=== PATIENT | male | born 1965 | race Caucasian/White ===

== ENCOUNTER 2021-08-28 04:52 | Inpatient (IN) | payer OTHER ==
[2021-08-28] MEDS ORDERED: NITROGLYCERIN SL TABS 0.4 MG TAB SUBLINGUAL PRN ×2 (04:55→06:50)
[2021-08-28] MEDS ORDERED: HEPARIN SODIUM 1,000 UN/ML (10ML VL) IV ONE (04:55)
[2021-08-28] MEDS ORDERED: MORPHINE SULFATE 4 MG/ML SYRINGE IV STA (04:58)
[2021-08-28] MEDS ORDERED: HEPARIN SOD,PORK IN 0.45% NACL 25,000 UNIT in 0.45% NACL 1 250ML.BAG IV SCH (05:00)
--- NOTE | 2021-08-28 05:05 | ED ---
Chest Pain HPI - General Chief Complaint: Chest Pain Stated Complaint: Chest Pain Time Seen by Provider: 08/28/21 04:55 Source: patient, EMS Mode of arrival: EMS Limitations: no limitations - History of Present Illness Initial Comments: This patient is a 56-year-old man who states he has history of myocardial infarction and stent placement approximately 10 years ago. He woke approximately 3:30 this morning with pains in the chest which she states were identical to the previous pain that he had. He called EMS who transported him here. EMS did send ECG by telemetry concerning for STEMI. The patient states that he had been a smoker until the first heart attack. Patient denies diaphoresis, dyspnea, nausea or vomiting. MD Complaint: chest pain Onset/Timin -: minutes(s) Onset: during rest Pain Location: substernal Pain Radiation: LUE Severity: moderate Quality: aching Consistency: constant Improves With: nitroglycerin Worsens With: nothing Treatments Prior to Arrival: aspirin, nitroglycerin - Related Data Previous Rx's Medication Instructions Recorded Cephalexin [Keflex] 500 mg PO Q6HR #40 cap 06/22/15 Allergies Allergy/AdvReac Type Severity Reaction Status Date / Time No Known Allergies Allergy Verified 06/22/15 15:16 Review of Systems ROS Statement: Those systems with pertinent positive or pertinent negative responses have been documented in the HPI. ROS Other: All systems not noted in ROS Statement are negative. Constitutional: Denies: fever, chills Respiratory: Denies: cough, dyspnea Cardiovascular: Reports: as per HPI, chest pain. Denies: palpitations, edema, syncope Gastrointestinal: Denies: abdominal pain, nausea, vomiting, melena, hematochezia Genitourinary: Denies: dysuria, hematuria Musculoskeletal: Denies: back pain Skin: Denies: rash Neurological: Denies: headache EKG Findings - EKG Comments: EKG Findings:: Twelve-lead ECG does appear to show inferior ST elevations, leads 3 and aVF as well as some reciprocal changes in V2 and V3. - EKG Results: EKG: interpreted by DAYLIN, sinus rhythm (Rate approximate 75 bpm), normal axis Past Medical History Past Medical History: Hyperlipidemia, Hypertension, Myocardial Infarction ([place]) History of Any Multi-Drug Resistant Organisms: None Reported Past Surgical History: Hernia Repair Past Psychological History: No Psychological Hx Reported Smoking Status: Former smoker Past Alcohol Use History: None Reported Past Drug Use History: Marijuana General Exam General appearance: alert, in no apparent distress Head exam: Present: atraumatic, normocephalic Eye exam: Present: normal appearance. Absent: scleral icterus, conjunctival injection Neck exam: Present: normal inspection Respiratory exam: Present: normal lung sounds bilaterally. Absent: respiratory distress, wheezes, rales, rhonchi, stridor Cardiovascular Exam: Present: regular rate, normal rhythm, normal heart sounds. Absent: systolic murmur, diastolic murmur, rubs, gallop GI/Abdominal exam: Present: soft. Absent: distended, tenderness, guarding, rebound, rigid Extremities exam: Present: normal inspection, normal capillary refill. Absent: pedal edema, calf tenderness Back exam: Present: normal inspection. Absent: CVA tenderness (R), CVA tenderness (L) Neurological exam: Present: alert Skin exam: Present: warm, dry, intact, normal color. Absent: rash Course Vital Signs 08/28/21 08/28/21 04:53 05:00 Temperature 98.7 F Pulse Rate 74 71 Respiratory 18 18 Rate Blood Pressure 139/87 130/80 O2 Sat by Pulse 95 98 Oximetry - Reevaluation(s) Reevaluation #1: 08/28/21 05:04 EMS has sent a 12-lead ECG concerning for STEMI as there inferior ST elevations and reciprocal changes in V2 and V3. Case is discussed with the shearer screen measurer and trimmer and the cleaning laborer was activated. Critical Care Time Critical Care Time: Yes (30 minutes) Disposition Clinical Impression: Acute coronary syndrome Disposition: HOME SELF-CARE Condition: Good
--- NOTE | 2021-08-28 05:05 | XR ---
EXAMINATION TYPE: XR chest 1V portable DATE OF EXAM: 08/28/2021 COMPARISON: 02/17/2012 HISTORY: Chest pain TECHNIQUE: Single view FINDINGS: There is no heart failure nor confluent pneumonic infiltrate. There is slight coarsening of the interstitial markings at the lung bases. There are no hilar masses. Mediastinum is normal. IMPRESSION: Increased interstitial markings at the lung bases compared to old exam. This could be mil d interstitial pneumonia or fibrosis. No heart failure.
[2021-08-28] MEDS ORDERED: HEPARIN SODIUM 1,000 UN/ML (10ML VL) ONE (05:23)
[2021-08-28] MEDS ORDERED: VERAPAMIL 2.5 MG/ML 2 ML AMP ONE (05:23)
[2021-08-28] MEDS ORDERED: LIDOCAINE 1% INJ 10MG/ML (20 ML MDV) ONE (05:23)
[2021-08-28 05:27] LABS: Basophils # (A) 0.1 k/uL (0-0.2); Basophils % (A) 1 %; Eosinophils # (A) 0.2 k/uL (0-0.7); Eosinophils % (A) 3 %; HCT 44.6 % (39.0-53.0); HGB 14.8 gm/dL (13.0-17.5); Lymphocytes # (A) 3.6 k/uL (1.0-4.8); Lymphocytes % (A) 40 %; MCH 31.1 pg (25.0-35.0); MCHC 33.1 g/dL (31.0-37.0); MCV 93.9 fL (80.0-100.0); Mean Platelet Volume 8.9; Monocytes # (A) 0.5 k/uL (0-1.0); Monocytes % (A) 6 %; Neutrophils # (A) 4.5 k/uL (1.3-7.7); Neutrophils % (A) 49 %; Platelet Count 227 k/uL (150-450); RBC 4.75 m/uL (4.30-5.90); RDW 13.3 % (11.5-15.5); WBC 9.1 k/uL (3.8-10.6)
[2021-08-28] MEDS: MIDAZOLAM 2 MG/2 ML VIAL IVP ONE ×2 (05:28→06:04)
[2021-08-28] MEDS ORDERED: LIDOCAINE 1% INJ 10MG/ML (20 ML MDV) SQ ONE (05:30)
[2021-08-28] MEDS ORDERED: IV FLUID CONTINUATION 1,000 ML IV ONE (05:32)
[2021-08-28] MEDS: HEPARIN SODIUM 1,000 UN/ML (10ML VL) IV ONE ×2 (05:32→06:35)
[2021-08-28] MEDS ORDERED: VERAPAMIL SYRINGE (5 MG/10 ML) INTRAARTER ONE (05:32)
[2021-08-28 05:37] LABS: INR 0.9 (<1.2); Partial Thromboplastin Time 25.4 sec (22.0-30.0); Prothrombin Time 10.4 sec (9.0-12.0)
[2021-08-28 05:38] LABS: ALT 19 U/L (4-49); AST 19 U/L (17-59); African American GFR (CKD) >90 (>60 ml/min/1.73 sqM); Albumin 4.4 g/dL (3.5-5.0); Alkaline Phosphatase 74 U/L (38-126); Anion Gap 11 mmol/L; Blood Urea Nitrogen 10 mg/dL (9-20); Calcium 9.4 mg/dL (8.4-10.2); Carbon Dioxide 26 mmol/L (22-30); Chloride 100 mmol/L (98-107); Glucose 102 mg/dL (74-99); Non-African American GFR(CKD) 88 (>60 ml/min/1.73 sqM); Potassium 3.8 mmol/L (3.5-5.1); Sodium 137 mmol/L (137-145); Total Bilirubin 0.7 mg/dL (0.2-1.3); Total Protein 7.4 g/dL (6.3-8.2)
[2021-08-28] MEDS ORDERED: niCARdipine 25 MG/10 ML VIAL ONE (05:47)
[2021-08-28] MEDS: NITROGLYCERIN 1000MCG/10ML SYRINGE INTRACORON ONE ×2 (05:55→06:32)
[2021-08-28] MEDS: niCARdipine Syringe (1,000 mcg/10 mL) INTRACORON ONE ×2 (05:55→06:31)
[2021-08-28] MEDS ORDERED: PRASUGREL 10 MG TAB ONE (05:58)
[2021-08-28] MEDS ORDERED: PRASUGREL 10 MG TAB PO ONE (06:01)
[2021-08-28] MEDS ORDERED: MORPHINE SULFATE 4 MG/ML SYRINGE ONE (06:03)
[2021-08-28] MEDS ORDERED: MORPHINE SULFATE 4 MG/ML SYRINGE IVP ONE (06:04)
[2021-08-28] MEDS ORDERED: ATROPINE SULFATE 0.1 MG/ML 10ML SYRINGE IVP ONE (06:11)
[2021-08-28] MEDS ORDERED: HYDROmorphone 1 MG/ML 1 ML SYRINGE ONE (06:18)
[2021-08-28] MEDS ORDERED: HYDROmorphone 1 MG/ML 1 ML SYRINGE IVP ONE (06:21)
[2021-08-28] MEDS ORDERED: MIDAZOLAM 2 MG/2 ML VIAL IVP ONE (06:22)
[2021-08-28] MEDS ORDERED: IOPAMIDOL-370 125ML BTL INJ ONE ×2 (06:23→06:39)
[2021-08-28] MEDS ORDERED: MAG HYDROX/AL HYDROX/SIMETH 30 ML CUP PO PRN (06:50)
[2021-08-28] MEDS ORDERED: RX INFO: IV CONTRAST WAS GIVEN 1 EACH MISC MISCELLANE PRN (06:50)
[2021-08-28] MEDS ORDERED: ZOLPIDEM 5 MG TAB PO PRN (06:50)
[2021-08-28] MEDS ORDERED: ATROPINE SULFATE 0.1 MG/ML 10ML SYRINGE IV PRN (06:50)
--- NOTE | 2021-08-28 06:58 | P.CRDCN ---
History of Present Illness Consult date: 08/28/21 Chief complaint: Chest pain History of present illness: The patient is a 56-year-old gentleman with coronary artery disease and prior stenting of the RCA which was performed several years ago, the timing on the RCA stent is unknown at this point, as well as hypertension and dyslipidemia was brought to the emergency department here with chest discomfort and EKG concerning for inferior ST patient myocardial infarction. The pain in the chest started about 8 hours ago. It was in the middle of the chest. It wasn't radiating to the back. Associated with shortness of breath. Ambulance was called and the first EKG showed [address] segment elevation inferiorly with reciprocal changes. In the light of that the patient was brought to the cardiac catheterization laboratory technician. He underwent an emergent heart catheterization from right radial approach and that revealed critical disease involving the distal RCA and also involving the PDA and PLV branches of the RCA. The patient underwent successful stenting of the PDA branch with adjunctive successful balloon angioplasty of the PLV branch of the RCA with a good angiographic results by the antrostomy 3 flow. During the procedure we lost the floor in the PLV branch and the patient started experiencing discomfort in the chest and his EKG showed 2-1 AV block. After restoring the floor in the PLV branch is chest discomfort has resolved and his AV block has resolved as well. He was almost chest pain-free by the end was only about 1/10 in intensity chest discomfort. Please note that the patient does not follow with any inspector eyeglass for the last 5 years. Unfortunately he is not also on any medications. He stated that he lost his medical insurance and for that reason he has not been having any follow-up nor taking any medications. Please also note that the patient was found severe disease involving the left circumflex coronary system as well as LAD. The disease in the LAD is quite complex and the LAD is dual LAD system. Past Medical History Past Medical History: Hyperlipidemia, Hypertension, Myocardial Infarction ([place]) History of Any Multi-Drug Resistant Organisms: None Reported Past Surgical History: Hernia Repair Past Psychological History: No Psychological Hx Reported Smoking Status: Former smoker Past Alcohol Use History: None Reported Past Drug Use History: Marijuana Medications and Allergies Home Medications Medication Instructions Recorded Confirmed Type Cephalexin [Keflex] 500 mg PO Q6HR #40 cap 06/22/15 Rx Allergies Allergy/AdvReac Type Severity Reaction Status Date / Time No Known Allergies Allergy Verified 06/22/15 15:16 Physical Exam Vitals: Vital Signs Temp Pulse Resp BP Pulse Ox 08/28/21 05:11 57 L 20 135/84 95 08/28/21 05:00 71 18 130/80 98 08/28/21 04:53 98.7 F 74 18 139/87 95 Intake and Output 08/27/21 08/27/21 08/28/21 14:59 22:59 06:59 Intake Total 600 Balance 600 Intake: IV 600 Other: Weight 88.451 kg - Constitutional General appearance: no acute distress - Respiratory Respiratory: bilateral: diminished - Cardiovascular Rhythm: regular Heart sounds: normal: S1, S2 Abnormal Heart Sounds: systolic murmur Results 08/28/21 04:56 08/28/21 04:56 Cardiac Enzymes 08/28/21 08/28/21 Range/Units 04:56 04:56 AST 19 (17-59) U/L Troponin I <0.012 (0.000-0.034) ng/mL Coagulation 08/28/21 Range/Units 04:56 PT 10.4 (9.0-12.0) sec APTT 25.4 (22.0-30.0) sec CBC 08/28/21 Range/Units 04:56 WBC 9.1 (3.8-10.6) k/uL RBC 4.75 (4.30-5.90) m/uL Hgb 14.8 (13.0-17.5) gm/dL Hct 44.6 (39.0-53.0) % Plt Count 227 (150-450) k/uL Comprehensive Metabolic Panel 08/28/21 Range/Units 04:56 Sodium 137 (137-145) mmol/L Potassium 3.8 (3.5-5.1) mmol/L Chloride 100 (98-107) mmol/L Carbon Dioxide 26 (22-30) mmol/L BUN 10 (9-20) mg/dL Creatinine 0.96 (0.66-1.25) mg/dL Glucose 102 H (74-99) mg/dL Calcium 9.4 (8.4-10.2) mg/dL AST 19 (17-59) U/L ALT 19 (4-49) U/L Alkaline Phosphatase 74 (38-126) U/L Total Protein 7.4 (6.3-8.2) g/dL Albumin 4.4 (3.5-5.0) g/dL Current Medications Generic Name Dose Route Start Last Admin Trade Name Freq PRN Reason Stop Dose Admin Al Hydroxide/Mg Hydroxide 30 ml 08/28/21 06:50 Mag Hydrox/Al Hydrox/Simeth 30 Ml Cup PO Q4HR PRN Heartburn Aspirin 81 mg 08/28/21 09:00 Aspirin 81 Mg PO DAILY [facility] Atorvastatin Calcium 80 mg 08/28/21 21:00 Atorvastatin 80 Mg Tab PO HS [facility] Atropine Sulfate 0.5 mg 08/28/21 06:50 Atropine Sulfate 0.1 Mg/Ml 10ml Syringe IV ONCE PRN Symptomatic Bradycardia Heparin Sodium/Sodium Chloride 250 mls @ 9.995 mls/hr 08/28/21 05:00 25,000 unit/ Sodium Chloride IV .Q24H [facility] Protocol 11.3 UNITS/KG/HR Sodium Chloride 1,000 ml/ IV 1,000 mls @ 75 mls/hr 08/28/21 07:00 Solution IV 08/28/21 13:01 .[id number] [facility] Miscellaneous Information 1 each 08/28/21 06:50 Rx Info: Iv Contrast Was Given 1 Each Misc MISCELLANE 08/30/21 06:50 DAILY PRN Per Protocol Nitroglycerin 0.4 mg 08/28/21 04:55 Nitroglycerin Sl Tabs 0.4 Mg Tab SUBLINGUAL Q5M PRN Chest Pain Nitroglycerin 0.4 mg 08/28/21 06:50 Nitroglycerin Sl Tabs 0.4 Mg Tab SUBLINGUAL Q5M PRN Chest Pain Prasugrel 10 mg 08/29/21 09:00 Prasugrel 10 Mg Tab PO DAILY [facility] Protocol Zolpidem Tartrate 5 mg 08/28/21 06:50 Zolpidem 5 Mg Tab PO HS PRN Insomnia Intake and Output 08/27/21 08/27/21 08/28/21 14:59 22:59 06:59 Intake Total 600 Balance 600 Intake: IV 600 Other: Weight 88.451 kg Patient Weight 08/28/21 06:59 Weight 88.451 kg 08/28/21 04:56 08/28/21 04:56 Assessment and Plan Assessment: Assessment #[address] elevation myocardial infarction #2 known CAD and prior stenting of the RCA #3 hypertension [place] #4 dyslipidemia #4 noncompliance Plan #1 dual antiplatelet therapy. #2 aggressive cholesterol control with high intensity statin #3 an ICU admission #4 monitor the patient's hemodynamics #5 obtain an echocardiogram to assess ejection fraction #6 follow-up with the patient
[2021-08-28] MEDS ORDERED: SODIUM CHLORIDE 0.9% 1,000 ML in EMPTY BAG 1 BAG IV SCH (07:00)
[2021-08-28 07:07] LABS: Glucose,Whole Blood 107 mg/dL (75-99)
--- NOTE | 2021-08-28 07:07 | P.PCN ---
Date of Procedure: 08/28/21 Operative Findings: CARDIAC CATHETERIZATION AND PERCUTANEOUS CORONARY INTERVENTION PERFORMING PHYSICIAN: Kavon Urbina MD, [facility] PROCEDURE PERFORMED: 1. Selective right and left coronary angiogram 2. Left heart catheterization 3. Successful stenting of PDA branch of the RCA using 2.75 x 23 mm Xience MANDY which was postdilated using 3 mm balloon which with an excellent angiographic results 4. Successful balloon angioplasty of the PLV branch of the RCA INDICATION: Acute inferior ST elevation myocardial infarction. Please note that the door to balloon was 56 minutes COMPLICATION: None APPROACH: Right radial artery LEVEL OF SEDATION: Moderate with the sedation time off 72 minutes PROCEDURE DESCRIPTION: After obtaining an informed consent the patient was brought to the cardiac mobile lab technician. The right radial artery was cannulated using micropuncture technique, the micropuncture wire passed easily then I placed a 6-Jordanian 11 cm sheath the right radial artery. And anticoagulation was initiated using heparin and the patient was given at the beginning a total of 5000 units of heparin IV and subsequently additional 2000 use of heparin given. Continuous ACT monitoring was performed. After that I did selective right and left coronary angiogram. Selective right coronary angiogram was performed using JR4 guide and selective left coronary angiogram was performed using JL 3.5 diagnostic catheter. After that I did intervene on the RCA. SELECTIVE CORONARY ANGIOGRAM: The right coronary artery: Is a large caliber vessel and a dominant vessel. The proximal RCA appears to be angiographically normal. The mid RCA and stented and the stent is patent. The RCA distally has a critical lesion and the lesion is complex and involving the ostial PDA and PLV branches. Both are large caliber vessels. Left main: Is angiographically normal. Bifurcates into all CX and LAD The left circumflex: Is a large caliber vessel and nondominant vessel. The proximal left circumflex appeared to have mild disease only and gives rises into a large first obtuse marginal branch which work as a ramus intermedius and has proximal lesion appeared to be in the range of 70-80%. The mid left circumflex is ang iographically normal and gives rises into the second OM branch which appeared to be angiographically normal. Third OM branch is also angiographically normal before the circumflex continue as a moderate to large caliber vessel in the AV groove The left anterior descending artery: Is a large caliber vessel. The LAD is dual LAD system. The proximal LAD has mild disease only. The mid LAD just before the bifurcation of a large diagonal branch has a lesion appeared to be in the range of 80%. The first diagonal branch which is a large caliber vessel has a lesion appeared to be in the range of 90%. The LAD after that appeared to have intermediate disease only and does not reach the apex. HEMODYNAMICS: The LVEDP was 10 mmHg without significant gradient across aortic valve PCI OF THE RCA: Anticoagulation was initiated using heparin with continuous ACT monitoring. The RCA was engaged using a JR4 guiding catheter. I did wire the PDA branch of the RCA using a run through wires. Subsequently I did wire and the PLV branch of the right coronary artery using a whisper wire. Balloon angioplasty was performed on both the PDA and PLV using 2.5 x 12 mm balloon. Subsequently I did place stent in the PDA branch of the right coronary artery across the PLV and that was 2.75 x 23 mm stent. The stent was positioned under fluoroscopy guidance and deployed under 12 georgie for 20 seconds. The following angiogram showed normal flow in the PLV branch and the patient starts being symptomatic and also he developed 2-1 AV block. Finally was able to get the wire into the PLV branch again and I did balloon angioplasty of the PLV branch using 2.5 x 12 mm balloon. After that I did balloon angioplasty of the PDA of the right coronary artery using 3.0 x 20 mm noncompliant balloon which was inflated under 18 georgie for 20 seconds. Final angiogram showed excellent angiographic results and the procedure was completed without any complication. We achieved GABRIEL-3 flow in the right coronary artery. CONCLUSION: #[address] patient myocardial infarction #2 Critical disease involving the distal right coronary artery and involving the bifurcation of the PDA and PLV. I performed successful stenting of the PDA successful balloon angioplasty of the PLV #3 Severe disease involving the left circumflex coronary system #4 Severe disease involving the LAD/diagonal system #5 Normal left sided filling pressure POSTPROCEDURE MANAGEMENT: #1 dual antiplatelet therapy #2 aggressive cholesterol control #3 follow-up with the patient
[2021-08-28] MEDS ORDERED: CYCLOBENZAPRINE 5 MG TAB PO PRN (08:32)
[2021-08-28] MEDS ORDERED: HYDROcodone/APAP 5-325MG 1 EACH TAB PO PRN (08:33)
[2021-08-28] MEDS: ASPIRIN 81 MG PO SCH (09:43)
--- NOTE | 2021-08-28 12:37 | ECHOF ---
Referral Reason:STEMI MEASUREMENTS -------- HEIGHT: 167.6 cm WEIGHT: 88.5 kg BP: 135/84 RVIDd: 2.3 cm (< 3.3) IVSd: 1.1 cm (0.6 - 1.1) LVIDd: 4.9 cm (3.9 - 5.3) LVPWd: 1.2 cm (0.6 - 1.1) IVSs: 1.6 cm LVIDs: 2.9 cm LVPWs: 1.3 cm LA Diam: 3.2 cm (2.7 - 3.8) LAESV Index (A-L): 19.76 ml/m Ao Diam: 3.4 cm (2.0 - 3.7) AV Cusp: 2.2 cm (1.5 - 2.6) MV EXCURSION: 15.618 mm (> 18.000) MV EF SLOPE: 106 mm/s (70 - 150) EPSS: 0.4 cm MV E Torres: 0.79 m/s MV DecT: 191 ms MV A Torres: 0.90 m/s MV E/A Ratio: 0.88 RAP: 5.00 mmHg RVSP: 26.84 mmHg FINDINGS -------- Sinus rhythm. This was a technically adequate study. The left ventricular size is normal. There is borderline concentric left ventricular hypertrophy. Overall left ventricular systolic function is mildly impaired with, an EF between 45 - 50 %. Basal inferior LV wall motion is hypokinetic. Basal inferoseptal LV wall motion is hypokinetic. Mid inferior LV wall motion is hypokinetic. The right ventricle is normal in size. Normal LA size by volume 22+/-6 ml/m2. The right atrial size is normal. Interatrial and interventricular septum intact. The aortic valve is trileaflet, and appears structurally normal. No aortic stenosis or regurgitation. The mitral valve is normal. There is trace to mild mitral regurgitation. The tricuspid valve appears structurally normal. Mild tricuspid regurgitation present. Right vent ricular systolic pressure is normal at < 35 mmHg. The pulmonic valve was not well visualized. There is no pulmonic regurgitation present. The aortic root size is normal. Normal inferior vena cava with normal inspiratory collapse consistent with estimated right atrial pre ssure of 5 mmHg. There is no pericardial effusion. CONCLUSIONS -------- 1. There is borderline concentric left ventricular hypertrophy. 2. Overall left ventricular systolic function is mildly impaired with, an EF between 45 - 50 %. 3. Basal inferior LV wall motion is hypokinetic. 4. Basal inferoseptal LV wall motion is hypokinetic. 5. Mid inferior LV wall motion is hypokinetic. 6. Normal LA size by volume 22+/-6 ml/m2. 7. The aortic valve is trileaflet, and appears structurally normal. No aortic stenosis or regurgitati on. 8. There is trace to mild mitral regurgitation. 9. Mild tricuspid regurgitation present. 10. There is no pericardial effusion. UTILITY SERVICE WORKER: Leanne Isbell RDCS
--- NOTE | 2021-08-28 14:03 | P.HPIM ---
History of Present Illness H&P Date: 08/28/21 (seen at 0803) Chief Complaint: chest pain Patient is a 56-year-old male for history of coronary artery disease and prior stenting in RCA however he has been unable to follow-up secondary to losing his medical insurance, hypertension, and dyslipidemia who presented to the emergency department with complaints of chest pain. An EKG showed inferior ST segment elevated myocardial infarction. Cardiology was called and patient was subsequently taken emergently to the Dehydrator. He had 2 stents placed to his RCA one in the PDA and one on the PLV. He returned to the ICU. His chest pain had resolved to 1 out of 10 prior to admission to the ICU. Patient seen and examined at bedside. Feeling tired and fatigue. chest pain is completely resolved at this time. No shortness of breath, no nausea or dizziness. He reports that his chest pain that started at rest, and felt si milar to his prior heart attack. It was associated with shortness of breath and numbness and tingling down both arms. He reports that he is on disability and now has insurance. In 2011 when he had his initial myocardial infarction he did not have any insurance at that time. He had been following with cardiology but no longer afford their clinic charges and had to stop following. He denies any recent cough, cold, fever, flu. He reports that he has some chronic GI issues which need to be worked up outpatient. They're currently getting better and not bothersome to him. He has some abdominal cramping that is relieved with defecation. He also has chronic low back pain which is unchanged and his is on disability. Pertinent positives and negatives as discussed in HPI, a complete review of systems was performed and all other systems are negative. General: non toxic, no distress, appears at stated age Derm: warm, dry Head: atraumatic, normocephalic, symmetric Eyes: EOMI, no lid lag, anicteric sclera, pupils equal round reactive to light ENT: Nose and ears atraumatic, no thrush, no pharyngeal erythema Neck: No thyromegaly, no cervical lymphadenopathy, trachea midline, supple Mouth: no lip lesion, mucus membranes moist Cardiovascular: S1S2 reg, no murmur, positive posterior tibial pulse bilateral, no edema, capillary refill less than 2 seconds Lungs: clear to ascultation bilateral, no ronchi, no rales, no wheeze, no accessory muscle use Abdominal: soft, nontender to palpation, no guarding, no appreciable organomegaly, normal bowel sounds Ext: no gross muscle atrophy, muscle strength muscle strength 5 out of 5 in all 4 extremities, no contractures, TR band in place right wrist Neuro: CN II-XI grossly intact, light touch intact all 4 extremities, finger to nose within normal limits, Psych: Alert, oriented, appropriate affect Assessment/Plan: ST segment elevated myocardial infarction, inferior, status post 2 stents to the RCA -Aspirin, Effient, Lipitor -Await echocardiogram -Cardiology recommendations -AV block during cardiac procedure. Continue to monitor on telemetry -Check lipid profile and hemoglobin A1c Dyslipidemia -Lipitor -Check lipid profile Hypertension -Controlled on arrival -Continue to follow blood pressures The patient is admitted with an anticipated greater than 2 midnight stay for evaluation of STEMI. Surrogate decision-maker: CODE STATUS:full DVT prophylaxis: heparin Discussed with: Anticipated discharge date: in 2-[address]: home A total of 55 minutes was spent on the care of this complex patient more than 50% of the time was spent in counseling and care coordination. Past Medical History Past Medical History: Hyperlipidemia, Hypertension, Myocardial Infarction ([place]) Additional Past Medical History / Comment(s): DJD, Osteoarthritis, chronic abdominal pain History of Any Multi-Drug Resistant Organisms: None Reported Past Surgical History: Heart Catheterization With Stent (last in 2011), Hernia Repair Additional Past Surgical History / Comment(s): sciatica Past Psychological History: No Psychological Hx Reported Smoking Status: Former smoker (quit 2011) Past Alcohol Use History: None Reported Past Drug Use History: Marijuana - Past Family History Father Additional Family Medical History / Comment(s): no heart disease Mother Additional Family Medical History / Comment(s): no hx of CT Medications and Allergies Home Medications Medication Instructions Recorded Confirmed Type Cetirizine HCl [Zyrtec] 10 mg PO DAILY 08/28/21 08/28/21 History Allergies Allergy/AdvReac Type Severity Reaction Status Date / Time No Known Allergies Allergy Verified 08/28/21 08:51 Physical Exam Osteopathic Statement: *. No significant issues noted on an osteopathic structural exam other than those noted in the History and Physical/Consult. Vitals: Vital Signs Temp Pulse Resp BP Pulse Ox 08/28/21 05:11 57 L 20 135/84 95 08/28/21 05:00 71 18 130/80 98 08/28/21 04:53 98.7 F 74 18 139/87 95 Intake and Output 08/27/21 08/28/21 08/28/21 22:59 06:59 14:59 Intake Total 600 Balance 600 Intake: IV 600 Other: Weight 88.451 kg Results CBC & Chem 7: 08/28/21 04:56 08/28/21 04:56 Labs: Abnormal Lab Results - Last 24 Hours (Table) 08/28/21 08/28/21 Range/Units 04:56 07:06 Glucose 102 H (74-99) mg/dL POC Glucose (mg/dL) 107 H (75-99) mg/dL
[2021-08-28 17:08] VITALS: BMI 33.0
[2021-08-28] MEDS: ATORVASTATIN 80 MG TAB PO SCH (20:20)
[2021-08-29 07:19] LABS: African American GFR (CKD) >90 (>60 ml/min/1.73 sqM); Anion Gap 5 mmol/L; Blood Urea Nitrogen 9 mg/dL (9-20); Calcium 9.3 mg/dL (8.4-10.2); Carbon Dioxide 23 mmol/L (22-30); Chloride 108 mmol/L (98-107); Glucose 106 mg/dL (74-99); Non-African American GFR(CKD) >90 (>60 ml/min/1.73 sqM); Sodium 136 mmol/L (137-145)
[2021-08-29] MEDS: PRASUGREL 10 MG TAB PO SCH (08:54)
[2021-08-29] MEDS: ASPIRIN 81 MG PO SCH (08:54)
[2021-08-29] MEDS ORDERED: ACETAMINOPHEN TAB 325 MG TAB PO PRN (09:19)
[2021-08-29] MEDS ORDERED: ASPIRIN-ACET-CAFF 250-250-65MG 1 EACH TAB PO PRN (09:32)
[2021-08-29] MEDS: LORATADINE 10 MG TAB PO SCH (09:32)
--- NOTE | 2021-08-29 10:12 | P.PN ---
Subjective Progress Note Date: 08/29/21 Principal diagnosis: chest pain Patient is a 56-year-old male for history of coronary artery disease and prior stenting in RCA however he has been unable to follow-up secondary to losing his medical insurance, hypertension, and dyslipidemia who presented to the emergency department with complaints of chest pain. An EKG showed inferior ST segment elevated myocardial infarction. Cardiology was called and patient was subsequently taken emergently to the [facility]. He had 2 stents placed to his RCA one in the PDA and one on the PLV. He returned to the ICU. His chest pain had resolved to 1 out of 10 prior to admission to the ICU. He continued to do well without significant events. Leonardo seen and examined at bedside. He complains of a randolph and being very tired. He thinks it is due to not having caffine. He has no chest pain or shortness of breath. General: ill appearing, mild distress, appears at stated age Derm: warm, dry Head: atraumatic, normocephalic, symmetric Eyes: EOMI, no lid lag, anicteric sclera Mouth: no lip lesion, mucus membranes moist Cardiovascular: S1S2 reg, no murmur, positive posterior tibial pulse bilateral, Lungs: Decreased bs bilateral, no rhonchi, no rales , no accessory muscle use Abdominal: soft, nontender to palpation, no guarding, no appreciable organomegaly Ext: no gross muscle atrophy, no edema, no contractures Neuro: CN II-XI grossly intact, no focal neuro deficits Psych: Alert, oriented, appropriate affect Assessment/Plan: ST segment elevated myocardial infarction, inferior, status post 2 stents to the RCA -Aspirin, Effient, Lipitor -EF 45-50% -Cardiology recommendations -AV block during cardiac procedure. Continue to monitor on telemetry -lipid profile pending - hemoglobin A1c 5.4 Headache - excedrine - tylenol Dyslipidemia -Lipitor -await lipid profile Hypertension -Controlled on arrival -Continue to follow blood pressures DVT prophylaxis: SCDs Discussed with: Patient, nursing Anticipated discharge: in [address]: home A total of 35 minutes was spent on the care of this complex patient more than 50% of the time was spent in counseling and care coordination. Active Medications Generic Name Dose Route Start Last Admin Trade Name Freq PRN Reason Stop Dose Admin Acetaminophen 650 mg 08/29/21 09:31 Acetaminophen Tab 325 Mg Tab PO Q6HR PRN Fever and/ or Mild Pain Acetaminophen/Aspirin/Caffeine 1 each 08/29/21 09:32 Nudaert-Cmuf-Fhzk [id number] 1 Each Tab PO Q6HR PRN Headache Hydrocodone Bitart/Acetaminophen 1 each 08/28/21 08:33 Hydrocodone/Apap 5-325mg 1 Each Tab PO Q6HR PRN Pain Al Hydroxide/Mg Hydroxide 30 ml 08/28/21 06:50 Mag Hydrox/Al Hydrox/Simeth 30 Ml Cup PO Q4HR PRN Heartburn Aspirin 81 mg 08/28/21 09:00 08/29/21 08:54 Aspirin 81 Mg PO 81 mg DAILY NIKIA Administration Atorvastatin Calcium 80 mg 08/28/21 21:00 08/28/21 20:20 Atorvastatin 80 Mg Tab PO 80 mg HS NIKIA Administration Atropine Sulfate 0.5 mg 08/28/21 06:50 Atropine Sulfate 0.1 Mg/Ml 10ml Syringe IV ONCE PRN Symptomatic Bradycardia Cyclobenzaprine HCl 5 mg 08/28/21 08:32 Cyclobenzaprine 5 Mg Tab PO TID PRN Muscle Spasm Loratadine 10 mg 08/29/21 09:30 08/29/21 09:32 Loratadine 10 Mg Tab PO 10 mg DAILY NIKIA Administration Miscellaneous Information 1 each 08/28/21 06:50 Rx Info: Iv Contrast Was Given 1 Each Misc MISCELLANE 08/30/21 06:50 DAILY PRN Per Protocol Nitroglycerin 0.4 mg 08/28/21 06:50 Nitroglycerin Sl Tabs 0.4 Mg Tab SUBLINGUAL Q5M PRN Chest Pain Prasugrel 10 mg 08/29/21 09:00 08/29/21 08:54 Prasugrel 10 Mg Tab PO 10 mg DAILY NIIKA Administration Protocol Zolpidem Tartrate 5 mg 08/28/21 06:50 Zolpidem 5 Mg Tab PO HS PRN Insomnia Objective - Vital Signs Vital signs: Vital Signs Temp 97.9 F 08/29/21 04:00 Pulse 69 08/29/21 09:00 Resp 15 08/29/21 09:00 BP 137/95 08/29/21 09:00 Pulse Ox 97 08/29/21 09:00 Intake & Output 08/28/21 08/29/21 08/29/21 18:59 06:59 18:59 Intake Total 1425 75 400 Output Total 1350 2050 450 Balance Weight 93 kg 89 kg Intake: IV 825 75 Sodium Chloride 0.9% 1, 825 75 000 ml In Empty Bag 1 bag @ 75 mls/hr IV .[id number] [facility] Rx#:[id number] Oral 600 400 Output: Urine 1350 2050 450 Other: Voiding Method Urinal # Voids 0 1 # Bowel Movements 1 - Labs CBC & Chem 7: 08/28/21 04:56 08/29/21 06:28 Labs: Abnormal Lab Results - Last 24 Hours (Table) 08/29/21 Range/Units 06:28 Sodium 136 L (137-145) mmol/L Chloride 108 H (98-107) mmol/L Glucose 106 H (74-99) mg/dL
[2021-08-29 11:03] LABS: Chol/HDL Ratio 5.82 Ratio; LDL Cholesterol,Calculated 163.9 mg/dL (0.0-131.0)
--- NOTE | 2021-08-29 15:12 | P.PN ---
Subjective Progress Note Date: 09/05/21 This is a 56-year-old gentleman with history of previous stent placement of the RCA who presented to the hospital with inferior wall RI. Apparently patient had a brief cardiac arrest requiring CPR in the emergency room. Subsequently he was taken to the [facility] employment [facility] and had stent placement of the PDA with angioplasty of the PLV branch. Patient is also found to have critical lesions in the LAD and circumflex system. Patient has remained stable since the procedure, denies any chest pain or shortness of breath. He is bothered with pickups. Puncture site healed well. Lungs are clear. Heart is regular. His echocardiogram showed hypokinesis of the inferior wall. The ejection fraction about 45-50%. Basal inferoseptal wall is hypokinetic basal inferior wall is hypokinetic mid inferior wall is hypokinetic. Patient is being transferred to telemetry unit. Will increase activity as tolerated. He patient is stable without any anginal pains, patient will be discharged home tomorrow. We'll follow closely with Dr. Brasher for further management of the rest of the lesions. Objective - Vital Signs Vital signs: Vital Signs Temp 97.3 F L 08/29/21 12:00 Pulse 59 L 08/29/21 14:00 Resp 18 08/29/21 12:00 BP 127/93 08/29/21 13:00 Pulse Ox 94 L 08/29/21 12:00 Intake & Output 08/28/21 08/29/21 08/29/21 18:59 06:59 18:59 Intake Total 1425 75 600 Output Total 1350 2050 450 Balance 75 -1974 150 Weight 93 kg 89 kg Intake: IV 825 75 Sodium Chloride 0.9% 1, 825 75 000 ml In Empty Bag 1 bag @ 75 mls/hr IV .[id number] NIKIA Rx#:[id number] Oral 600 600 Output: Urine 1350 2050 450 Other: Voiding Method Urinal Urinal # Voids 0 1 # Bowel Movements 1 - Exam GENERAL EXAM: Patient is alert and oriented and doesn't appear to be in any acute distress HEENT: Normocephalic. Normal reaction of pupils, equal size, normal range of extraocular motion. No erythema or exudates in the throat. NECK: No masses, no nuchal rigidity. CHEST: No chest wall deformity. LUNGS: Equal air entry with no crackles or wheeze. HEART: S1 and S2 normal with no audible mumurs or gallops. Regular rhythm, femorals equal on both sides.. ABDOMEN: No hepatosplenomegaly, normal bowel sounds, no guarding or rigidity. SKIN: No rashes CENTRAL NERVOUS SYSTEM: No focal deficits. EXTREMITIES: No cyanosis, clubbing or edema. - Labs CBC & Chem 7: 08/28/21 04:56 08/29/21 06:28 Labs: Abnormal Lab Results - Last 24 Hours (Table) 08/29/21 Range/Units 06:28 Sodium 136 L (137-145) mmol/L Chloride 108 H (98-107) mmol/L Glucose 106 H (74-99) mg/dL Triglycerides 162.00 H (0.00-149.00) mg/dL Cholesterol 237.00 H (0.00-200.00) mg/dL LDL Cholesterol, Calc 163.9 H (0.0-131.0) mg/dL Assessment and Plan (1) STEMI (ST elevation myocardial infarction) Current Visit: Yes Status: Acute Code(s): I21.3 - ST ELEVATION (STEMI) [facility] Code(s): 01367264 (2) Coronary artery disease Current Visit: Yes Status: Acute Code(s): I25.10 - ATHSCL HEART DISEASE OF [place] CORONARY ARTERY W/O ANG PCTRS SNOMED Code(s): 51948867 (3) Essential hypertension Current Visit: Yes Status: Acute Code(s): I10 - ESSENTIAL (PRIMARY) HYPERTENSION SNOMED Code(s): 92929900 (4) Hypercholesterolemia Current Visit: Yes Status: Acute Code(s): E78.00 - PURE HYPERCHOLESTEROLEMIA, UNSPECIFIED SNOMED Code(s): 79229442 Plan: Patient is clinically stable. Echo showed mildly impaired LV function with ejection fraction of 45-50%. No arrhythmias noted. Patient is being transferred to telemetry unit. Increase activity as tolerated
[2021-08-29] MEDS: ATORVASTATIN 80 MG TAB PO SCH (20:03)
[2021-08-30] MEDS: ACETAMINOPHEN TAB 325 MG TAB PO PRN ×2 (00:07→11:37)
[2021-08-30] MEDS: ASPIRIN 81 MG PO SCH (09:28)
[2021-08-30] MEDS: LORATADINE 10 MG TAB PO SCH (09:28)
[2021-08-30] MEDS: PRASUGREL 10 MG TAB PO SCH (09:29)
[2021-08-30 09:46] VITALS: BP 134/89; PULSE 59; RESP 25; TEMP 97.6
--- NOTE | 2021-08-30 12:47 | P.PN ---
Subjective Progress Note Date: 08/30/21 This is a 56-year-old gentleman with history of previous stent placement of the RCA who presented to the hospital with inferior wall [place]. Apparently patient had a brief cardiac arrest requiring CPR in the emergency room. Subsequently he was taken to the carpenter/labor and had stent placement of the PDA with angioplasty of the PLV branch. Patient is also found to have critical lesions in the LAD and circumflex system. Patient has remained stable since the procedure, denies any chest pain or shortness of breath. He is bothered with pickups. Puncture site healed well. Lungs are clear. Heart is regular. His echocardiogram showed hypokinesis of the inferior wall. The ejection fraction about 45-50%. Basal inferoseptal wall is hypokinetic basal inferior wall is hypokinetic mid inferior wall is hypokinetic. Patient is being transferred to telemetry unit. Will increase activity as tolerated. He patient is stable without any anginal pains, patient will be discharged home tomorrow. We'll follow closely with Dr. Brasher for further management of the rest of the lesions. 08/30/2021: This patient remains stable overnight complaints of unable to sleep last night. No complains of chest pain or shortness of breath. Patient wants to go home. Lungs are clear. Heart is regular. No JVD or peripheral edema. From cardiac standpoint, patient could be discharged home. 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 He'll follow-up with Dr. Brasher as an outpatient for further management. Meanwhile patient will continue current medical therapy including dual antiplatelet agent Objective - Vital Signs Vital signs: Vital Signs Temp 97.6 F 08/30/21 08:00 Pulse 59 L 08/30/21 08:00 Resp 25 H 08/30/21 08:00 BP 134/89 08/30/21 08:00 Pulse Ox 97 08/30/21 08:00 Intake & Output 08/29/21 08/30/21 08/30/21 18:59 06:59 18:59 Intake Total 1025 200 Output Total 750 1600 Balance 275 -1600 200 Weight 89 kg Intake: Oral 1025 200 Output: Urine 750 1600 Other: Voiding Method Urinal Urinal Urinal # Voids 1 1 2 # Bowel Movements 1 - Exam GENERAL EXAM: Patient is alert and oriented and doesn't appear to be in any acute distress HEENT: Normocephalic. Normal reaction of pupils, equal size, normal range of extraocular motion. No erythema or exudates in the throat. NECK: No masses, no nuchal rigidity. CHEST: No chest wall deformity. LUNGS: Equal air entry with no crackles or wheeze. HEART: S1 and S2 normal with no audible mumurs or gallops. Regular rhythm, femorals equal on both sides.. ABDOMEN: No hepatosplenomegaly, normal bowel sounds, no guarding or rigidity. SKIN: No rashes CENTRAL NERVOUS SYSTEM: No focal deficits. EXTREMITIES: No cyanosis, clubbing or edema. - Labs CBC & Chem 7: 08/28/21 04:56 08/29/21 06:28 Assessment and Plan (1) STEMI (ST elevation myocardial infarction) Current Visit: Yes Status: Acute Code(s): I21.3 - ST ELEVATION (STEMI) MYOCARDIAL INFARCTION OF [facility] SITE SNOMED Code(s): 52120168 (2) Coronary artery disease Current Visit: Yes Status: Acute Code(s): I25.10 - ATHSCL HEART DISEASE OF [place] CORONARY ARTERY W/O ANG PCTRS SNOMED Code(s): 99078662 (3) Essential hypertension Current Visit: Yes Status: Acute Code(s): I10 - ESSENTIAL (PRIMARY) HYPERTENSION SNOMED Code(s): 58817796 (4) Hypercholesterolemia Current Visit: Yes Status: Acute Code(s): E78.00 - PURE HYPERCHO LESTEROLEMIA, UNSPECIFIED SNOMED Code(s): 71706060 Plan: Patient remains critically stable. He'll continue current medical therapy. Patient will continue be discharged home on current medical therapy and have follow-up with Dr. Brasher next week for further management of multivessel disease. Patient is advised not to do any heavy pushing, pulling shoveling small, etc.
--- NOTE | 2021-08-30 16:29 | P.DS ---
Providers Date of admission: 08/28/21 05:21 Expected date of discharge: 08/30/21 Attending physician: Gabrielle Helms MD Consults: 08/28/21 04:55 Consult Physician Stat Consulting Provider: Cely Pierce Consult Reason/Comments: STEMI ACTIVATION COMPLETE Do you want consulting provider notified?: Yes 08/28/21 06:50 Consult Physician Routine Consulting Provider: Cely Pierce Consult Reason/Comments: Post Interventional patient Do you want consulting provider notified?: Already Contacted Primary care physician: Stated None Hospital Course: Discharge Diagnosis: ST segment elevated myocardial infarction, inferior, status post 2 stents to the RCA Headache Dyslipidemia Hypertension, hx not curretnly requiring medications Hospital Course: Patient is a 56-year-old male for history of coronary artery disease and prior stenting in RCA however he has been unable to follow-up secondary to losing his medical insurance, hypertension, and dyslipidemia who presented to the emergency department with complaints of chest pain. An EKG showed inferior ST segment elevated myocardial infarction. Cardiology was called and patient was subsequently taken emergently to the [facility]. He had 2 stents placed to his RCA one in the PDA and one on the PLV. He returned to the ICU. His chest pain had resolved to 1 out of 10 prior to admission to the ICU. He continued to do well without significant events. Echocardiogram showed EF of 45-50%. He was found have elevated total cholesterol levels. He continued to do well and was determined stable for discharge home. He'll follow-up with Bunny Estevez as well as cardiology. No beta blockers secondary to 2:1 AV block during cath and npossible need for repeat intervention. He was placed on Effient, aspirin, and Lipitor. Patient seen and examined at bedside. Neck is better was unable to sleep last night. No recurrent chest pain or shortness of breath. Doing well. We discussed that he will need close follow-up and he is aware. Vital signs reviewed and stable. General: non toxic, no distress, appears at stated age Derm: warm, dry Head: atraumatic, normocephalic, symmetric Eyes: EOMI, no lid lag, anicteric sclera Mouth: no lip lesion, mucus membranes moist Cardiovascular: S1S2 reg, no murmur, positive posterior tibial pulse bilateral, Lungs: CTA bilateral, no rhonchi, no rales , no accessory muscle use Abdominal: soft, nontender to palpation, no guarding, no appreciable organomegaly Ext: no gross muscle atrophy, no edema, no contractures Neuro: CN II-XI grossly intact, no focal neuro deficits Psych: Alert, oriented, appropriate affect A total of 37 minutes of time were spent preparing this complex discharge summary . Patient Condition at Discharge: Good Plan - Discharge Summary Discharge Rx Participant: Yes New Discharge Prescriptions: New Prasugrel [Effient] 10 mg PO DAILY #90 tab Aspirin 81 mg PO DAILY #90 tab Atorvastatin [Lipitor] 80 mg PO HS #90 tab Nitroglycerin Sl Tabs [Nitrostat] 0.4 mg SUBLINGUAL Q5M PRN #100 tab PRN Reason: Chest Pain Continue Cetirizine HCl [Zyrtec] 10 mg PO DAILY Discharge Medication List Cetirizine HCl [Zyrtec] 10 mg PO DAILY 08/28/21 [History] Aspirin 81 mg PO DAILY #90 tab 08/30/21 [Rx] Atorvastatin [Lipitor] 80 mg PO HS #90 tab 08/30/21 [Rx] Nitroglycerin Sl Tabs [Nitrostat] 0.4 mg SUBLINGUAL Q5M PRN #100 tab 08/30/21 [Rx] Prasugrel [Effient] 10 mg PO DAILY #90 tab 08/30/21 [Rx] Follow up Appointment(s)/Referral(s): Kavon Urbina MD [STAFF PHYSICIAN] - 1 Week (Dr Urbina's office notified of appointment, they will contact the patient once they have reviewed his chart. Mr Boudreaux is aware they will call him. ) Rashid Maravilla MD [REFERRING] - 1 Week (anyone in the [facility] office) Activity/Diet/Wound Care/Special Instructions: Activity: as tolerated Diet: heart healthy Thanks for trusting us ] Discharge/Stand Alone Forms: Who Do I Call?, Community Resources, Help In The Home, Outpatient Counseling Discharge Disposition: HOME SELF-CARE
== END 2021-08-30 12:45 | disposition home or self-care (01) | DRG 246 ==
LOC: EC 04:52 → 2SICU 05:21
PROVIDERS: ADMIT Internal Medicine; ATTEND Internal Medicine
PROC: B2111ZZ Fluoroscopy of Multiple Coronary Arteries using Low Osmolar Contrast (ICD-10-PCS; 2021-08-28)
PROC: 5A12012 Performance of Cardiac Output, Single, Manual (ICD-10-PCS; 2021-08-28)
PROC: 027134Z Dilation of Coronary Artery, Two Arteries with Drug-eluting Intraluminal Device, Percutaneous Approach (ICD-10-PCS; principal; 2021-08-28 05:19)
PROC: 4A023N7 Measurement of Cardiac Sampling and Pressure, Left Heart, Percutaneous Approach (ICD-10-PCS; 2021-08-28 05:19)
DX: I21.19 ST elevation (STEMI) myocardial infarction involving other coronary artery of inferior wall (principal); I46.9 Cardiac arrest, cause unspecified; E78.00 Pure hypercholesterolemia, unspecified; E78.5 Hyperlipidemia, unspecified; G47.00 Insomnia, unspecified; G89.29 Other chronic pain; Z20.822 Contact with and (suspected) exposure to COVID-19; I10 Essential (primary) hypertension; I25.10 Atherosclerotic heart disease of native coronary artery without angina pectoris; I25.2 Old myocardial infarction; I44.1 Atrioventricular block, second degree; Z87.891 Personal history of nicotine dependence; Z91.19 Patient's noncompliance with other medical treatment and regimen
CPT/HCPCS: 36415; 71045; 80048; 80053; 80061; 83036; 84484; 85025; 85610; 85730; 87635; 93005; 93306; 93458; 96374; 96375; 99291

== ENCOUNTER 2021-11-11 16:23 | Observation (INO) | payer OTHER ==
--- NOTE | 2021-11-11 17:02 | ED ---
General Adult HPI - General Chief complaint: Chest Pain Stated complaint: Chest pain Time Seen by Provider: 11/11/21 16:50 Source: patient, RN notes reviewed, old records reviewed Mode of arrival: EMS Limitations: no limitations - History of Present Illness Initial comments: This a 56-year-old male presents emergency Department with a past medical histo ry significant for 2 MIs and 2 stents. Patient states he also has diabetes and high blood pressure. Patient states he does take a high cholesterol pills well per patient denies any family history. Patient denies any smoking of cigarettes but does smoke marijuana. Patient comes in today because he had some right- sided pain in his right upper chest and arm. It lasted a few minutes until he took 2 nitroglycerin at the same time and that made him pass out when he woke up he was chest pain-free. Patient did get a full dose of aspirin in the emesis. Patient states currently he is having no symptoms. Patient states associated with the chest pain was significant shortness of breath. Patient also stated he was diaphoretic. Patient denied any vomiting but states she was very nauseated and needed Zofran in the ambulance. - Related Data Home Medications Medication Instructions Recorded Confirmed Cetirizine HCl [Zyrtec] 10 mg PO DAILY 08/28/21 08/28/21 Previous Rx's Medication Instructions Recorded Aspirin 81 mg PO DAILY #90 tab 08/30/21 Atorvastatin [Lipitor] 80 mg PO HS #90 tab 08/30/21 Nitroglycerin Sl Tabs [Nitrostat] 0.4 mg SUBLINGUAL Q5M PRN #100 tab 08/30/21 Prasugrel [Effient] 10 mg PO DAILY #90 tab 08/30/21 Allergies Allergy/AdvReac Type Severity Reaction Status Date / Time acetaminophen AdvReac Unknown Verified 11/11/21 16:48 [From Tylenol-Codeine #3] codeine AdvReac Unknown Verified 11/11/21 16:48 [From Tylenol-Codeine #3] Review of Systems ROS Statement: Those systems with pertinent positive or pertinent negative responses have been documented in the HPI. ROS Other: All systems not noted in ROS Statement are negative. Past Medical History Past Medical History: Coronary Artery Disease (CAD), Hyperlipidemia, Hypertension, Myocardial Infarction (HI) Additional Past Medical History / Comment(s): DJD, Osteoarthritis, chronic abdominal pain Last Myocardial Infarction Date:: 02/2012 History of Any Multi-Drug Resistant Organisms: None Reported Past Surgical History: Heart Catheterization With Stent, Hernia Repair Additional Past Surgical History / Comment(s): sciatica Past Anesthesia/Blood Transfusion Reactions: Previous Problems w/ Anesthesia Additional Past Anesthesia/Blood Transfusion Reaction / Comment(s): syncopal epsisode after getting local anesthesia for stitches Date of Last Stent Placement:: 02/2012 Past Psychological History: No Psychological Hx Reported Smoking Status: Former smoker Past Alcohol Use History: None Reported Past Drug Use History: Marijuana - Past Family History Father Additional Family Medical History / Comment(s): no heart disease Mother Additional Family Medical History / Comment(s): no hx of HI General Exam - General Exam Comments Initial Comments: GENERAL: Patient is well-developed and well-nourished. Patient is nontoxic and well- hydrated and is in no acute distress. ENT: Neck is soft and supple. No significant lymphadenopathy is noted. Oropharynx is clear. Moist mucous membranes. Neck has full range of motion without eliciting any pain. EYES: The sclera were anicteric and conjunctiva were pink and moist. Extraocular movements were intact and pupils were equal round and reactive to light. Eyelids were unremarkable. PULMONARY: Unlabored respirations. Good breath sounds bilaterally. No audible rales rhonchi or wheezing was noted. CARDIOVASCULAR: There is a regular rate and rhythm without any murmurs gallops or rubs. ABDOMEN: Soft and nontender with normal bowel sounds. SKIN: Skin is clear with no lesions or rashes and otherwise unremarkable. NEUROLOGIC: Patient is alert and oriented x3. Cranial nerves II through XII are grossly intact. Motor and sensory are also intact. Normal speech, volume and content. Symmetrical smile. MUSCULOSKELETAL: Normal extremities with adequate strength and full range of motion. LYMPHATICS: No significant lymphadenopathy is noted PSYCHIATRIC: Normal psychiatric evaluation. Limitations: no limitations Course Vital Signs 11/11/21 11/11/21 16:46 17:52 Temperature 98.8 F Pulse Rate 62 71 Respiratory 18 16 Rate Blood Pressure 121/89 111/68 O2 Sat by Pulse 98 97 Oximetry Medical Decision Making - Medical Decision Making EKG shows sinus bradycardia 57 bpm PA interval is 123 QRS is 97 QT intervals 45 QTC is 400. Patient's EKG shows an occasional PVC. Patient EKG shows no ST segment elevation or depression or other some T-wave inversions in Q waves in inferior leads 3 and aVF Chest x-ray shows no acute abnormality. Patient is not expressing any more discomfort in the arm pit and was no longer s hort of breath. Labs came back essentially normal but because of the patient's significant past medical history I'm admitting the patient I spoke with sounds physician's they were in agreement to accept the admission and I consulted cardiology - Lab Data Result diagrams: 11/11/21 16:53 11/11/21 16:53 Lab Results 11/11/21 11/11/21 11/11/21 Range/Units 16:53 16:53 16:53 WBC 8.8 (3.8-10.6) k/uL RBC 4.84 (4.30-5.90) m/uL Hgb 14.7 (13.0-17.5) gm/dL Hct 44.7 (39.0-53.0) % MCV 92.3 (80.0-100.0) fL MCH 30.3 (25.0-35.0) pg MCHC 32.8 (31.0-37.0) g/dL RDW 14.0 (11.5-15.5) % Plt Count 214 (150-450) k/uL MPV 9.8 Neutrophils % 59 % Lymphocytes % 30 % Monocytes % 6 % Eosinophils % 2 % Basophils % 0 % Neutrophils # 5.2 (1.3-7.7) k/uL Lymphocytes # 2.6 (1.0-4.8) k/uL Monocytes # 0.5 (0-1.0) k/uL Eosinophils # 0.2 (0-0.7) k/uL Basophils # 0.0 (0-0.2) k/uL PT 10.6 (9.0-12.0) sec INR 1.0 (<1.2) APTT 22.1 (22.0-30.0) sec Sodium 139 (137-145) mmol/L Potassium 4.3 (3.5-5.1) mmol/L Chloride 107 (98-107) mmol/L Carbon Dioxide 25 (22-30) mmol/L Anion Gap 7 mmol/L BUN 11 (9-20) mg/dL Creatinine 0.93 (0.66-1.25) mg/dL Est GFR (CKD-EPI)AfAm >90 (>60 ml/min/1.73 sqM) Est GFR (CKD-EPI)NonAf >90 (>60 ml/min/1.73 sqM) Glucose 136 H (74-99) mg/dL Calcium 8.9 (8.4-10.2) mg/dL Magnesium 2.1 (1.6-2.3) mg/dL Total Bilirubin 0.8 (0.2-1.3) mg/dL AST 18 (17-59) U/L ALT 18 (4-49) U/L Alkaline Phosphatase 80 (38-126) U/L Troponin I (0.000-0.034) ng/mL Total Protein 7.0 (6.3-8.2) g/dL Albumin 4.2 (3.5-5.0) g/dL 11/11/21 Range/Units 16:53 WBC (3.8-10.6) k/uL RBC (4.30-5.90) m/uL Hgb (13.0-17.5) gm/dL Hct (39.0-53.0) % MCV (80.0-100.0) fL MCH (25.0-35.0) pg MCHC (31.0-37.0) g/dL RDW (11.5-15.5) % Plt Count (150-450) k/uL MPV Neutrophils % % Lymphocytes % % Monocytes % % Eosinophils % % Basophils % % Neutrophils # (1.3-7.7) k/uL Lymphocytes # (1.0-4.8) k/uL Monocytes # (0-1.0) k/uL Eosinophils # (0-0.7) k/uL Basophils # (0-0.2) k/uL PT (9.0-12.0) sec INR (<1.2) APTT (22.0-30.0) sec Sodium (137-145) mmol/L Potassium (3.5-5.1) mmol/L Chloride (98-107) mmol/L Carbon Dioxide (22-30) mmol/L Anion Gap mmol/L BUN (9-20) mg/dL Creatinine (0.66-1.25) mg/dL Est GFR (CKD-EPI)AfAm (>60 ml/min/1.73 sqM) Est GFR (CKD-EPI)NonAf (>60 ml/min/1.73 sqM) Glucose (74-99) mg/dL Calcium (8.4-10.2) mg/dL Magnesium (1.6-2.3) mg/dL Total Bilirubin (0.2-1.3) mg/dL AST (17-59) U/L ALT (4-49) U/L Alkaline Phosphatase (38-126) U/L Troponin I <0.012 (0.000-0.034) ng/mL Total Protein (6.3-8.2) g/dL Albumin (3.5-5.0) g/dL Disposition Clinical Impression: Anginal equivalent Disposition: ADMITTED IP TO THIS HOSP Referrals: None,Stated [Primary Care Provider] - 1-2 days Time of Disposition: 19:16
[2021-11-11] MEDS ORDERED: NITROGLYCERIN OINT 1 INCH/GM PACKET TOPICAL STA (17:10)
[2021-11-11 17:21] LABS: ALT 18 U/L (4-49); AST 18 U/L (17-59); African American GFR (CKD) >90 (>60 ml/min/1.73 sqM); Albumin 4.2 g/dL (3.5-5.0); Alkaline Phosphatase 80 U/L (38-126); Anion Gap 7 mmol/L; Blood Urea Nitrogen 11 mg/dL (9-20); Calcium 8.9 mg/dL (8.4-10.2); Carbon Dioxide 25 mmol/L (22-30); Chloride 107 mmol/L (98-107); Glucose 136 mg/dL (74-99); Magnesium 2.1 mg/dL (1.6-2.3); Non-African American GFR(CKD) >90 (>60 ml/min/1.73 sqM); Potassium 4.3 mmol/L (3.5-5.1); Sodium 139 mmol/L (137-145); Total Bilirubin 0.8 mg/dL (0.2-1.3)
[2021-11-11 17:23] LABS: Basophils % (A) 0 %; Eosinophils # (A) 0.2 k/uL (0-0.7); Eosinophils % (A) 2 %; HCT 44.7 % (39.0-53.0); HGB 14.7 gm/dL (13.0-17.5); Lymphocytes # (A) 2.6 k/uL (1.0-4.8); Lymphocytes % (A) 30 %; MCH 30.3 pg (25.0-35.0); MCHC 32.8 g/dL (31.0-37.0); MCV 92.3 fL (80.0-100.0); Mean Platelet Volume 9.8; Monocytes # (A) 0.5 k/uL (0-1.0); Monocytes % (A) 6 %; Neutrophils # (A) 5.2 k/uL (1.3-7.7); Neutrophils % (A) 59 %; Platelet Count 214 k/uL (150-450); RBC 4.84 m/uL (4.30-5.90); WBC 8.8 k/uL (3.8-10.6)
--- NOTE | 2021-11-11 17:28 | XR ---
EXAMINATION TYPE: XR chest 2V DATE OF EXAM: 11/11/2021 COMPARISON: 08/28/2021 HISTORY: Chest pain TECHNIQUE: Frontal and lateral views of the chest are obtained. FINDINGS: Heart is normal. As noted on the prior study, there is mild prominence of interstitial mar kings which could reflect chronic interstitial changes or acute mild interstitial infiltrate. There i s no airspace consolidation. Mediastinum and hilum appear normal. There is no pleural effusion or pneumothorax. The osseous structures are intact. IMPRESSION: Mild prominent interstitial markings as was seen previously. These most likely represent mild chronic interstitial changes. Acute interstitial pneumonia not entirely excluded. Clinical correlation is re commended..
[2021-11-11 17:34] LABS: Partial Thromboplastin Time 22.1 sec (22.0-30.0); Prothrombin Time 10.6 sec (9.0-12.0)
[2021-11-11] MEDS ORDERED: NITROGLYCERIN SL TABS 0.4 MG TAB SUBLINGUAL PRN (19:18)
[2021-11-11] MEDS ORDERED: ACETAMINOPHEN TAB 500 MG TAB PO STA (19:53)
[2021-11-11] MEDS ORDERED: ATORVASTATIN 80 MG TAB PO SCH (21:15)
--- NOTE | 2021-11-11 21:39 | P.HPIM ---
History of Present Illness H&P Date: 11/11/21 Chief Complaint: chest pain 56 year old male with CAD s/p stents, migraine patient comes in after an episode of right sided chest pain associated with dizziness, palpitation, headache, and SOB. lasted only couple minutes, patient took two pills of nitro and felt more tired and passed out. he was resting doing nothing when this episode started patient had inferior [place] about 2 months ago , requiring stenting to the RCA. left heart cath also showed severe disease in LAD and left circumflex. Echo LVEF 45- 50%. family called EMS and was brought to the hospital for evaluation. he currently denies any ongoing chest pain or trouble breathing, he reports some headache, no vision or hearing changes , no focal neuro deficits. otherwise, patient has no other complaints. denies any fever, chills , URI symptoms, abd pain , nausea or vomiting workup in the ED, EKG bradycardia with PVCs, no acute ST changes, blood work unremarkable , trops negative. CXR showed mild interstitial markings denies history of DM , hypertension , tobacco smoking, he admits to ssmoking marijuana Review of Systems Pertinent positives as noted in HPI. All other systems were reviewed and are negative Past Medical History Past Medical History: Coronary Artery Disease (CAD), Hyperlipidemia, Hypertension, Myocardial Infarction ([place]) Additional Past Medical History / Comment(s): DJD, Osteoarthritis, chronic abdominal pain Last Myocardial Infarction Date:: 02/2012 History of Any Multi-Drug Resistant Organisms: None Reported Past Surgical History: Heart Catheterization With Stent, Hernia Repair Additional Past Surgical History / Comment(s): sciatica Past Anesthesia/Blood Transfusion Reactions: Previous Problems w/ Anesthesia Additional Past Anesthesia/Blood Transfusion Reaction / Comment(s): syncopal epsisode after getting local anesthesia for stitches Date of Last Stent Placement:: 02/2012 Past Psychological History: No Psychological Hx Reported Smoking Status: Former smoker Past Alcohol Use History: None Reported Past Drug Use History: Marijuana - Past Family History Father Additional Family Medical History / Comment(s): no heart disease Mother Additional Family Medical History / Comment(s): no hx of [place] Medications and Allergies Home Medications Medication Instructions Recorded Confirmed Type Cetirizine HCl [Zyrtec] 10 mg PO DAILY 08/28/21 11/11/21 History Aspirin 81 mg PO DAILY #90 tab 08/30/21 11/11/21 Rx Atorvastatin [Lipitor] 80 mg PO HS #90 tab 08/30/21 11/11/21 Rx Multivitamins, Thera [Multivitamin 1 tab PO HS 11/11/21 11/11/21 History (formulary)] Nitroglycerin Sl Tabs [Nitrostat] 0.4 mg SL Q5M PRN 11/11/21 11/11/21 History [place]-3 Fatty Acids/Fish Oil [Fish 1 cap PO HS 11/11/21 11/11/21 History Oil 1,000 mg Softgel] Prasugrel [Effient] 10 mg PO DAILY 11/11/21 11/11/21 History Allergies Allergy/AdvReac Type Severity Reaction Status Date / Time ciprofloxacin [From Cipro] AdvReac Hallucinati Verified 11/11/21 19:34 ons codeine AdvReac syncopal Verified 11/11/21 19:33 [From Tylenol-Codeine #3] episode morphine AdvReac syncopal Verified 11/11/21 19:33 episode Opioids - Morphine Analogues AdvReac syncopal Verified 11/11/21 19:33 episode Opioids-Meperidine and AdvReac syncopal Verified 11/11/21 19:33 Related episode Opioids-Methadone and Related AdvReac syncopal Verified 11/11/21 19:33 episode Physical Exam Vitals: Vital Signs Temp Pulse Resp BP Pulse Ox 11/11/21 19:45 71 18 121/68 97 11/11/21 17:52 71 16 111/68 97 11/11/21 16:46 98.8 F 62 18 121/89 98 Intake and Output 11/11/21 11/11/21 11/11/21 06:59 14:59 22:59 Other: Weight 88.451 kg Constitutional: No acute distress, conversant, pleasant Eyes: Anicteric sclerae, moist conjunctiva, Pupils equal round reactive to light ENMT: NC/AT Oropharynx clear, no erythema, or exudates Neck: Supple, FROM, no masses, or JVD No carotid bruits No thyromegaly Lungs: Clear to auscultation Clear to percussion Normal respiratory effort, no accessory muscle use Cardiovascular: Heart regular in rate and rhythm, No murmurs, gallops, or rubs No peripheral edema Abdominal: Soft Nontender, no guarding, rebound or rigidity Abdomen moving with respiration Normoactive bowel sounds No hepatomegaly, No splenomegaly No palpable mass No abdominal wall hernia noted Skin: Normal temperature, tone, texture, turgor No induration No subcutaneous nodules No rash, lesions No ulcers Extremities: No digital cyanosis No clubbing Pedal pulses intact and symmetrical Radial pulses intact and symmetrical No calf tenderness Psychiatric: Alert and oriented to person, place and time Appropriate affect fair judgement Neuro Muscles Strength 5/5 in all 4 extremities Sensation to light touch grossly present throughout Cranial nerves II-XII grossly intact No focal sensory deficits Lymphatics: no palpable cervical or supraclavicular , or inguinal lymph nodes Results CBC & Chem 7: 11/11/21 16:53 11/11/21 16:53 Labs: Abnormal Lab Results - Last 24 Hours (Table) 11/11/21 Range/Units 16:53 Glucose 136 H (74-99) mg/dL Thrombosis Risk Factor Assmnt - Choose All That Apply Any of the Below Risk Factors Present?: Yes Each Factor Represents 1 point: Age 41-60 years, Obesity (BMI >25) Other Risk Factors: No Other congenital or acquired thrombophilia - If yes, enter type in comment: No Thrombosis Risk Factor Assessment Total Risk Factor Score: 2 Thrombosis Risk Factor Assessment Level: Low Risk Assessment and Plan Assessment: atypical chest pain rule out ACS history of CAD, recent inferior STEMI 2 months ago , with RCA stenting , also found severe disease in left circumflex and LAD plan trend trops , negative X 2 security monitor ASA, statin , effieint cardiology consult monitor vital signs recent CAD with RCA stenting full code DVT PPX heparin sc tid anticipated length of stay < 2 midnights
[2021-11-11] MEDS: NITROGLYCERIN OINT 1 INCH/GM PACKET TOPICAL SCH (23:11)
[2021-11-11] MEDS: HEPARIN SODIUM,PORCINE/PF 5,000 UNIT/0.5 ML SYRINGE SQ SCH (23:16)
[2021-11-11] MEDS ORDERED: diphenhydrAMINE 25 MG CAP PO STA (23:49)
[2021-11-11] MEDS ORDERED: ACETAMINOPHEN TAB 325 MG TAB PO PRN (23:49)
[2021-11-12] MEDS: NITROGLYCERIN OINT 1 INCH/GM PACKET TOPICAL SCH (06:10)
[2021-11-12] MEDS: HEPARIN SODIUM,PORCINE/PF 5,000 UNIT/0.5 ML SYRINGE SQ SCH ×2 (07:59→11:38)
[2021-11-12 08:48] LABS: Basophils % (A) 0 %; Eosinophils # (A) 0.1 k/uL (0-0.7); Eosinophils % (A) 1 %; HCT 44.1 % (39.0-53.0); HGB 13.7 gm/dL (13.0-17.5); Lymphocytes # (A) 2.6 k/uL (1.0-4.8); Lymphocytes % (A) 25 %; MCH 29.1 pg (25.0-35.0); MCHC 31.2 g/dL (31.0-37.0); MCV 93.5 fL (80.0-100.0); Mean Platelet Volume 9.9; Monocytes # (A) 0.6 k/uL (0-1.0); Monocytes % (A) 6 %; Neutrophils # (A) 6.8 k/uL (1.3-7.7); Neutrophils % (A) 66 %; Platelet Count 194 k/uL (150-450); RBC 4.72 m/uL (4.30-5.90); RDW 13.5 % (11.5-15.5); WBC 10.2 k/uL (3.8-10.6)
[2021-11-12] MEDS ORDERED: LORATADINE 10 MG TAB PO SCH (09:00)
[2021-11-12] MEDS ORDERED: PRASUGREL 10 MG TAB PO SCH (09:00)
[2021-11-12] MEDS ORDERED: ASPIRIN 81 MG PO SCH (09:00)
[2021-11-12] MEDS ORDERED: ASPIRIN 325 MG TAB PO SCH (09:00)
[2021-11-12 09:02] LABS: ALT 17 U/L (4-49); AST 18 U/L (17-59); African American GFR (CKD) >90 (>60 ml/min/1.73 sqM); Albumin 3.8 g/dL (3.5-5.0); Alkaline Phosphatase 77 U/L (38-126); Anion Gap 6 mmol/L; Blood Urea Nitrogen 10 mg/dL (9-20); Calcium 8.9 mg/dL (8.4-10.2); Carbon Dioxide 26 mmol/L (22-30); Chloride 107 mmol/L (98-107); Glucose 95 mg/dL (74-99); Non-African American GFR(CKD) >90 (>60 ml/min/1.73 sqM); Potassium 4.3 mmol/L (3.5-5.1); Sodium 139 mmol/L (137-145); Total Bilirubin 0.8 mg/dL (0.2-1.3); Total Protein 6.7 g/dL (6.3-8.2)
--- NOTE | 2021-11-12 10:45 | P.CRDCN ---
History of Present Illness History of present illness: HISTORY OF PRESENTING ILLNESS This is a pleasant 56-year-old male past medical history significant for coronary artery disease status post PCI to the RCA in 2011, and PCI to the RCA and balloon angioplasty of the PLV branch of the RCA in 08/2021 in setting of STEMI, known coronary disease and left circumflex and LAD. Dyslipidemia, hypertension, chronic nicotine dependence, ischemic cardiomyopathy. He follows in the office with Dr. Urbina. We have been asked to see in consultation for chest pain. Patient presents emergency department with complaints of right-sided axilla pain/right chest. It is non-radiating, non-exertional. No specific aggravating or alleviating factors. He states that lasted less than 5 minutes. He also had bilateral finger numbness and headache located on the top of his head. He states that he took 2 nitroglycerin at once, at home and had a syncopal episode. EMS was called by his . He was brought to the emergency department for further evaluation. He states this is different from when he had his stents placed in the past. He denies symptoms of orthopnea or PND. Patient states he is compliant with the medications. DIAGNOSTICS -EKG reveals sinus bradycardia, heart rate 57, T wave inversions inferiorly, poor R wave progression. No acute changes to suggst ischemia. His EKG has improved from prior EKG in 08/2021 when he had stents placed -Last Cardiac Catheterization 08/28/2021 Critical disease involving the distal right coronary artery and involving the bifurcation of the PDA and PLV. Successful stenting of the PDA successful balloon angioplasty of the -PLV, Severe disease involving the left circumflex coronary system, Severe disease involving the LAD/diagonal system, Normal left sided filling pressure -Echocardiogram 08/2021 revealed an EF of 4550 percent, basal inferior LV and basal inferior septal LV and mid inferior LV wall hypokinetic, trace to mild mitral regurgitation, mild tricuspid regurgitation -Telemetry tracings indicate sinus mechanism with heart rates 5860s -Chest xray mild prominent interstitial markings as seen previously. Mild chronic interstitial changes. -Laboratory reviewed, troponin negative 3, CBC unremarkable, sodium 139, potassium 4.3, BUN 10, syncope and 0.8, magnesium 2.1 -Current home medications include Effient 10 mg daily, atorvastatin 80 mg daily, aspirin 81mg daily REVIEW OF SYSTEMS At the time of my exam: CONSTITUTIONAL: Denies fever or chills. CARDIOVASCULAR: Denies chest pain, shortness of breath, orthopnea, PND or palpitations. RESPIRATORY: Denies cough. GASTROINTESTINAL: Denies abdominal pain, diarrhea, constipation, nausea or vomiting. MUSCULOSKELETAL: Denies myalgias. NEUROLOGIC: Denies numbness, tingling, headache or weakness. ENDOCRINE: Denies fatigue, weight change, polydipsia or polyurina. GENITOURINARY: Denies burning, hematuria or urgency with micturation. HEMATOLOGIC: Denies history of anemia or bleeding. PHYSICAL EXAMINATION Blood pressure 123/82, heart 64, afebrile, saturations 99% on room air CONSTITUTIONAL: No apparent distress. HEENT: Head is normocephalic. Pupils are equal, round. Sclerae anicteric. Mucous membranes of the mouth are moist. No JVD. No carotid bruit. CHEST EXAMINATION: Lungs are diminished in bases to auscultation. No chest wall tenderness is noted on palpation or with deep breathing. HEART EXAMINATION: Regular rate and rhythm. S1, S2 heard. No murmurs, gallops or rub. ABDOMEN: Soft, nontender. Positive bowel sounds. EXTREMITIES: 2+ peripheral pulses, no lower extremity edema and no calf ten derness. SKIN: warm, dry NEUROLOGIC EXAMINATION: Patient is awake, alert and oriented x3. ASSESSMENT Chest pain, does not appear to be cardiac in etiology, acute coronary syndrome has been ruled out Headache Coronary artery disease status post PCI to the RCA in 2011, and PCI to the RCA and balloon angioplasty of the PLV branch of the RCA in 08/2021 in setting of STEMI, known coronary disease and left circumflex and LAD. Dyslipidemia Hypertension Former nicotine dependence Ischemic cardiomyopathy PLAN An acute coronary event has been ruled out with no EKG evidence of ischemia and negative cardiac enzymes. Recommend continuing dual anti-platelet therapy with aspirin and Effient Recommend increase patient's activity, if no chest pain, patient is stable from a cardiology perspective and recommend follow up with Dr. Urbina in the office in 1 week. Thank you kindly for this consultation. Nurse practitioner note has been reviewed by physician. Signing provider agrees with the documented findings, assessment, and plan of care. Past Medical History Past Medical History: Coronary Artery Disease (CAD), Hyperlipidemia, Hypertension, Myocardial Infarction ([place]) Additional Past Medical History / Comment(s): DJD, Osteoarthritis, chronic abdominal pain Last Myocardial Infarction Date:: 02/2012 History of Any Multi-Drug Resistant Organisms: None Reported Past Surgical History: Heart Catheterization With Stent, Hernia Repair Additional Past Surgical History / Comment(s): sciatica Past Anesthesia/Blood Transfusion Reactions: Previous Problems w/ Anesthesia Additional Past Anesthesia/Blood Transfusion Reaction / Comment(s): syncopal epsisode after getting local anesthesia for stitches Date of Last Stent Placement:: 02/2012 Past Psychological History: No Psychological Hx Reported Smoking Status: Former smoker Past Alcohol Use History: None Reported Past Drug Use History: Marijuana - Past Family History Father Additional Family Medical History / Comment(s): no heart disease Mother Additional Family Medical History / Comment(s): no hx of [place] Medications and Allergies Home Medications Medication Instructions Recorded Confirmed Type Cetirizine HCl [Zyrtec] 10 mg PO DAILY 08/28/21 11/11/21 History Aspirin 81 mg PO DAILY #90 tab 08/30/21 11/11/21 Rx Atorvastatin [Lipitor] 80 mg PO HS #90 tab 08/30/21 11/11/21 Rx Multivitamins, Thera [Multivitamin 1 tab PO HS 11/11/21 11/11/21 History (formulary)] Nitroglycerin Sl Tabs [Nitrostat] 0.4 mg SL Q5M PRN 11/11/21 11/11/21 History [place]-3 Fatty Acids/Fish Oil [Fish 1 cap PO HS 11/11/21 11/11/21 History Oil 1,000 mg Softgel] Prasugrel [Effient] 10 mg PO DAILY 11/11/21 11/11/21 History Allergies Allergy/AdvReac Type Severity Reaction Status Date / Time ciprofloxacin [From Cipro] AdvReac Hallucinati Verified 11/11/21 19:34 ons codeine AdvReac syncopal Verified 11/11/21 19:33 [From Tylenol-Codeine #3] episode morphine AdvReac syncopal Verified 11/11/21 19:33 episode Opioids - Morphine Analogues AdvReac syncopal Verified 11/11/21 19:33 episode Opioids-Meperidine and AdvReac syncopal Verified 11/11/21 19:33 Related episode Opioids-Methadone and Related AdvReac syncopal Verified 11/11/21 19:33 episode Physical Exam Vitals: Vital Signs Temp Pulse Pulse Resp BP BP Pulse Ox 11/12/21 07:54 98.4 F 64 16 123/82 99 11/12/21 04:20 83 18 131/88 100 11/11/21 23:15 66 18 118/73 98 11/11/21 20:40 98 F 74 18 157/99 98 11/11/21 19:45 71 18 121/68 97 11/11/21 17:52 71 16 111/68 97 11/11/21 16:46 98.8 F 62 18 121/89 98 Intake and Output 11/11/21 11/12/21 11/12/21 22:59 06:59 14:59 Other: Voiding Method Toilet Weight 88.451 kg Results 11/12/21 07:51 11/12/21 07:51 Cardiac Enzymes 11/11/21 11/11/21 11/11/21 Range/Units 16:53 16:53 19:26 AST 18 (17-59) U/L Troponin I <0.012 <0.012 (0.000-0.034) ng/mL 11/11/21 Range/Units 23:05 AST (17-59) U/L Troponin I <0.012 (0.000-0.034) ng/mL Coagulation 11/11/21 Range/Units 16:53 PT 10.6 (9.0-12.0) sec APTT 22.1 (22.0-30.0) sec CBC 11/11/21 Range/Units 16:53 WBC 8.8 (3.8-10.6) k/uL RBC 4.84 (4.30-5.90) m/uL Hgb 14.7 (13.0-17.5) gm/dL Hct 44.7 (39.0-53.0) % Plt Count 214 (150-450) k/uL Comprehensive Metabolic Panel 11/11/21 Range/Units 16:53 Sodium 139 (137-145) mmol/L Potassium 4.3 (3.5-5.1) mmol/L Chloride 107 (98-107) mmol/L Carbon Dioxide 25 (22-30) mmol/L BUN 11 (9-20) mg/dL Creatinine 0.93 (0.66-1.25) mg/dL Glucose 136 H (74-99) mg/dL Calcium 8.9 (8.4-10.2) mg/dL AST 18 (17-59) U/L ALT 18 (4-49) U/L Alkaline Phosphatase 80 (38-126) U/L Total Protein 7.0 (6.3-8.2) g/dL Albumin 4.2 (3.5-5.0) g/dL Current Medications Generic Name Dose Route Start Last Admin Trade Name Freq PRN Reason Stop Dose Admin Acetaminophen 650 mg 11/11/21 23:49 11/11/21 23:56 Acetaminophen Tab 325 Mg Tab PO 650 mg Q4HR PRN Administration Fever and/ or Pain Aspirin 325 mg 11/12/21 09:00 11/12/21 07:59 Aspirin 325 Mg Tab PO 325 mg DAILY [facility] Administration Atorvastatin Calcium 80 mg 11/11/21 21:15 11/11/21 21:37 Atorvastatin 80 Mg Tab PO 80 mg HS NIKIA Administration Heparin Sodium (Porcine) 5,000 unit 11/12/21 00:00 11/12/21 07:59 Heparin Sodium,Porcine/Pf 5,000 Unit/0.5 Ml Syringe SQ 5,000 unit Q8HR NIKIA Administration Loratadine 10 mg 11/12/21 09:00 11/12/21 07:59 Loratadine 10 Mg Tab PO 10 mg DAILY NIKIA Administration Nitroglycerin 0.4 mg 11/11/21 19:18 Nitroglycerin Sl Tabs 0.4 Mg Tab SUBLINGUAL Q5M PRN Chest Pain Nitroglycerin 1 inch 11/12/21 00:00 11/12/21 06:10 Nitroglycerin Oint 1 Inch/Gm Packet TOPICAL Not Given Q6HR [facility] Prasugrel 10 mg 11/12/21 09:00 11/12/21 07:59 Prasugrel 10 Mg Tab PO 10 mg DAILY NIKIA Administration Intake and Output 11/11/21 11/12/21 11/12/21 22:59 06:59 14:59 Other: Voiding Method Toilet Weight 88.451 kg 11/11/21 16:53 11/11/21 16:53
[2021-11-12 11:37] VITALS: BP 150/92; PULSE 63; RESP 18; TEMP 98.1
--- NOTE | 2021-11-12 12:49 | P.DS ---
Providers Date of admission: 11/11/21 19:18 Attending physician: Umesh Workman MD Consults: 11/11/21 19:18 Consult Physician Urgent Consulting Provider: [facility] Consult Reason/Comments: Anginal equivalent Do you want consulting provider notified?: Yes Primary care physician: Stated None Hospital Course: 56 year old male with CAD s/p stents, migraine patient comes in after an episode of right sided chest pain associated with dizziness, palpitation, headache, and SOB. lasted only couple minutes, patient took two pills of nitro and felt more tired and passed out. he was resting doing nothing when this episode started patient had inferior [place] about 2 months ago , requiring stenting to the RCA. left heart cath also showed severe disease in LAD and left circumflex. Echo LVEF 45- 50%. family called EMS and was brought to the hospital for evaluation. he currently denies any ongoing chest pain or trouble breathing, he reports some headache, no vision or hearing changes , no focal neuro deficits. otherwise, patient has no other complaints. denies any fever, chills , URI symptoms, abd pain , nausea or vomiting workup in the ED, EKG bradycardia with PVCs, no acute ST changes, blood work unremarkable , trops negative. CXR showed mild interstitial markings denies history of DM , hypertension , tobacco smoking, he admits to ssmoking marijuana Patient was evaluated at bedside today not complaining of any chest pain, shortness of breath or palpitations. Tachycardia syndrome has been ruled out no evidence of EKG changes for ischemia. Cardiac enzymes. Patient is recommended to continue taking antiplatelet therapy with aspirin and efficent. Recommend increase patient's activity, patient is not complaining of any chest pain, shortness of breath or palpitations. He is okay to be discharged from cardiology as well as internal medicines perspective. He is arranging outpatient follow-up. Plan - Discharge Summary Discharge Rx Participant: No New Discharge Prescriptions: Continue Aspirin 81 mg PO DAILY #90 tab Atorvastatin [Lipitor] 80 mg PO HS #90 tab Nitroglycerin Sl Tabs [Nitrostat] 0.4 mg SL Q5M PRN PRN Reason: Chest Pain [place]-3 Fatty Acids/Fish Oil [Fish Oil 1,000 mg Softgel] 1 cap PO HS Prasugrel [Effient] 10 mg PO DAILY Cetirizine HCl [Zyrtec] 10 mg PO DAILY Multivitamins, Thera [Multivitamin (formulary)] 1 tab PO HS Discharge Medication List Cetirizine HCl [Zyrtec] 10 mg PO DAILY 08/28/21 [History] Aspirin 81 mg PO DAILY #90 tab 08/30/21 [Rx] Atorvastatin [Lipitor] 80 mg PO HS #90 tab 08/30/21 [Rx] Multivitamins, Thera [Multivitamin (formulary)] 1 tab PO HS 11/11/21 [History] Nitroglycerin Sl Tabs [Nitrostat] 0.4 mg SL Q5M PRN 11/11/21 [History] [place]-3 Fatty Acids/Fish Oil [Fish Oil 1,000 mg Softgel] 1 cap PO HS 11/11/21 [History] Prasugrel [Effient] 10 mg PO DAILY 11/11/21 [History] Follow up Appointment(s)/Referral(s): Kavon Urbina MD [STAFF PHYSICIAN] - 11/23/21 3:15 pm (FRIDAY) None,Stated [Primary Care Provider] - 1-2 days Patient Instructions/Handouts: Angina (DC) Discharge Disposition: HOME SELF-CARE
[2021-11-12 16:12] LABS: Chol/HDL Ratio 3.15 Ratio; LDL Cholesterol,Calculated 54.2 mg/dL (0.0-131.0)
[2021-11-13] MEDS ORDERED: ASPIRIN 81 MG PO SCH (09:00)
== END 2021-11-12 13:48 | disposition home or self-care (01) ==
LOC: EC 16:23 → 3SCARD 19:18
PROVIDERS: ADMIT Internal Medicine; ATTEND Internal Medicine
DX: R07.89 Other chest pain (principal); I25.10 Atherosclerotic heart disease of native coronary artery without angina pectoris; I25.5 Ischemic cardiomyopathy; I49.3 Ventricular premature depolarization; G43.909 Migraine, unspecified, not intractable, without status migrainosus; I08.1 Rheumatic disorders of both mitral and tricuspid valves; E78.00 Pure hypercholesterolemia, unspecified; I25.2 Old myocardial infarction; I10 Essential (primary) hypertension; E78.5 Hyperlipidemia, unspecified; G89.29 Other chronic pain; R10.9 Unspecified abdominal pain; M19.90 Unspecified osteoarthritis, unspecified site; E66.9 Obesity, unspecified; Z68.31 Body mass index [BMI] 31.0-31.9, adult; R61 Generalized hyperhidrosis; R55 Syncope and collapse; T46.3X5A Adverse effect of coronary vasodilators, initial encounter; Z79.82 Long term (current) use of aspirin; Z79.02 Long term (current) use of antithrombotics/antiplatelets; Z79.899 Other long term (current) drug therapy; Z88.6 Allergy status to analgesic agent; Z88.5 Allergy status to narcotic agent; Z88.1 Allergy status to other antibiotic agents; Z95.5 Presence of coronary angioplasty implant and graft; Z87.891 Personal history of nicotine dependence; Z98.890 Other specified postprocedural states
CPT/HCPCS: 96372 ×2; 99285; 36415; 93005; 80061; 80053 ×2; 83735; 84484; 85025 ×2; 85610; 85730; 71046; G0378 ×2; J1644 ×2

== ENCOUNTER 2024-04-13 01:44 | Observation (INO) | payer MEDICARE, OTHER ==
--- NOTE | 2024-04-13 02:05 | ED ---
General Adult HPI - General Chief complaint: Dizziness Stated complaint: Chest Pain Time Seen by Provider: 04/13/24 01:52 Source: patient, EMS Mode of arrival: EMS Limitations: no limitations - History of Present Illness Initial comments: Patient is a 58-year-old male with past medical history of CAD presenting today for "feeling like he is having a heart attack". Patient states that he was sitting at home tonight watching football game when he began feeling dizzy, felt tingling in his fingers bilaterally, felt weak sweaty nausea and diaphoretic. P atient took set to single nitroglycerin with resolution of symptoms exception of persistent tingling in his fingertips bilaterally. On EMS arrival patient received 324 of aspirin. Given resolution of symptoms patient debated on coming to the hospital however due to history of prior SD and prior stents came in today. He denies any chest pain, shortness of breath/difficulty in breathing, fevers, cough, lower extremity edema, abdominal pain, vomiting. - Related Data Home Medications Medication Instructions Recorded Confirmed Atorvastatin Calcium [Lipitor] 80 mg PO DAILY@0430 04/13/24 04/13/24 Previous Rx's Medication Instructions Recorded Aspirin 81 mg PO DAILY 30 Days #30 tab 04/13/24 Isosorbide Mononitrate ER [Imdur] 30 mg PO DAILY 30 Days #30 tab 04/13/24 Metoprolol Tartrate [Lopressor] 12.5 mg PO BID 30 Days #60 tab 04/13/24 Allergies Allergy/AdvReac Type Severity Reaction Status Date / Time ciprofloxacin [From Cipro] AdvReac Hallucinati Verified 04/13/24 07:24 ons codeine AdvReac syncopal Verified 04/13/24 07:24 [From Tylenol-Codeine #3] episode morphine AdvReac syncopal Verified 04/13/24 07:24 episode Opioids - Morphine Analogues AdvReac syncopal Verified 04/13/24 07:24 episode Opioids-Meperidine and AdvReac syncopal Verified 04/13/24 07:24 Related episode Opioids-Methadone and Related AdvReac syncopal Verified 04/13/24 07:24 episode Review of Systems ROS Statement: Those systems with pertinent positive or pertinent negative responses have been documented in the HPI. ROS Other: All systems not noted in ROS Statement are negative. Past Medical History Past Medical History: Coronary Artery Disease (CAD), Hyperlipidemia, Hypertension, Myocardial Infarction (SD) Additional Past Medical History / Comment(s): DJD, Osteoarthritis, chronic abdominal pain Last Myocardial Infarction Date:: 02/2012 History of Any Multi-Drug Resistant Organisms: None Reported Past Surgical History: Heart Catheterization With Stent, Hernia Repair Additional Past Surgical History / Comment(s): sciatica Past Anesthesia/Blood Transfusion Reactions: Previous Problems w/ Anesthesia Additional Past Anesthesia/Blood Transfusion Reaction / Comment(s): syncopal epsisode after getting local anesthesia for stitches Date of Last Stent Placement:: 02/2012 Past Psychological History: No Psychological Hx Reported Smoking Status: Former smoker Past Alcohol Use History: None Reported Past Drug Use History: Marijuana - Past Family History Father Additional Family Medical History / Comment(s): no heart disease Mother Additional Family Medical History / Comment(s): no hx of SD General Exam - General Exam Comments Initial Comments: PE: CONSTITUTIONAL: No apparent distress, ill appearing though non toxic SKIN: Pale, dry, no jaundice, hives or petechiae EYES: Pupils are equally round, extraocular movements intact without nystagmus, clear conjunctiva, non-icteric sclera HENT: Normocephalic, atraumatic, moist mucus membranes, oropharynx clear without exudates NECK: , Full range of motion, normal appearance PULMONARY: Clear to auscultation without wheezes, rhonchi, or rales, normal excursion, no accessory muscle use and no stridor CARDIOVASCULAR: Regular rate, rhythm, normal S1 and S2. No appreciated murmurs, rubs or gallops. Strong radial pulses with intact distal perfusion. No lower extremity edema GASTROINTESTINAL: Soft, non-tender, non-distended, no palpable masses, no rebound or guarding. No hepatosplenomegaly MUSCULOSKELETAL: Extremities have no gross deformity, no edema, redness, or swelling. NEUROLOGIC:_a/o x 3, GCS 15, normal mentation and speech. Moves all extremities x 4 without motor or sensory deficit PSYCHIATRIC:_normal mood and affect, thought process is clear and linear Limitations: no limitations Course Vital Signs 04/13/24 04/13/24 04/13/24 01:45 03:00 05:00 Temperature 98.3 F Pulse Rate 68 67 72 Respiratory 18 16 16 Rate Blood Pressure 133/72 108/67 139/88 O2 Sat by Pulse 99 97 96 Oximetry 04/13/24 04/13/24 04/13/24 06:00 08:33 10:33 Temperature 98.2 F Pulse Rate 66 61 59 L Respiratory 16 18 20 Rate Blood Pressure 104/65 128/84 106/64 O2 Sat by Pulse 96 96 Oximetry 04/13/24 12:57 Temperature Pulse Rate 60 Respiratory 18 Rate Blood Pressure 116/83 O2 Sat by Pulse 99 Oximetry Medical Decision Making - Medical Decision Making Was pt. sent in by a medical professional or institution (, PA, E[employer]WE[employer] MANU[employer]URING SUPERVISOR, urgent care, hospital, or [facility]...) When possible be specific @ -No Did you speak to anyone other than the patient for history (EMS, parent, family, police, friend...)? What history was obtained from this source @ -No Did you review nursing and triage notes (agree or disagree)? Why? @ -I reviewed and agree with nursing and triage notes Were old charts reviewed (outside hosp., previous admission, EMS record, old EK G, old radiological studies, urgent care reports/EKG's, [facility] records)? Report findings @ -Reviewed old charts, Reviewed cardiac cath note from August 28, 2021 patient required stenting of the PDA branch of the RCA which was performed after patient was found to have an acute inferior ST elevation SD Differential Diagnosis (chest pain, altered mental status, abdominal pain women, abdominal pain men, vaginal bleeding, weakness, fever, dyspnea, syncope, headache, dizziness, GI bleed, back pain, seizure, CVA, palpatations, mental health, musculoskeletal)? @ -Differential Chest Pain: Stable Angina, Unstable Angina, STEMI, NSTEMI Apericarditis, pleurisy, chostochondirits, Pneumothorax, Musculoskeletal, Esophageal Spasm GERD, this is not meant to be an all-inclusive list. EKG interpreted by me (3pts min.). @ -Sinus rhythm, rate 66 bpm, DC interval 135 ms, QRS duration 95 ms, QT/QTc 370/388 ms, normal axis, no ST elevations or depressions, artifact present throughout, no arrhythmia X-rays interpreted by me (1pt min.). No cardiomegaly, consolidations or pleural effusions CT interpreted by me (1pt min.). @ -None done U/S interpreted by me (1pt. min.). @ -None done What testing was considered but not performed or refused? (CT, X-rays, U/S, labs)? Why? @ -None What meds were considered but not given or refused? Why? @ -None Did you discuss the management of the patient with other professionals (professionals i.e. , PA, E[employer]URING SUPERVISOR, lab, RT, psych nurse, social insurance analyst, service engineer, teacher, associate loan officer, case hardener)? Give summary @ -No Was smoking cessation discussed for >3mins.? @ -No Was critical care preformed (if so, how long)? @ -No Were there social determinants of health that impacted care today? How? (Homelessness, low income, unemployed, alcoholism, drug addiction, t ransportation, low edu. Level, literacy, decrease access to med. care, correction, rehab)? @ -No Was there de-escalation of care discussed even if they declined (Discuss DNR or withdrawal of care, Hospice)? @ -No What co-morbidities impacted this encounter? (DM, HTN, Smoking, COPD, CAD, Cancer, CVA, ARF, Chemo, Hep., AIDS, mental health diagnosis, sleep apnea, morbid obesity)? @History of CAD Was patient admitted / discharged? Hospital course, mention meds given and route, prescriptions, significant lab abnormalities, going to OR and other pertinent info. @ -Hospital course-admitted Patient is a pleasant 58 no gentleman history of CAD prior stents presenting today for feeling like he was having heart attack. Symptoms had resolved upon arrival, no chest pain. Patient is pale and chronically ill-appearing but nontoxic in no distress on my assessment. Plan for chest pain workup, IV fluids Tylenol. Patient agreeable plan of care. Labs and imaging reviewed. White blood cell count 15.1, otherwise grossly within normal limits. Abnormal values not concerning for acute pathology related to presenting complaint. I discussed with patient that, due to his significant medical history I recommend admission for observation. Patient is agreeable with plan of care. Discussed with Dr. Workman, [place] [facility] physicians, who kindly accepts patient for admission. Patient admitted in stable condition Undiagnosed new problem with uncertain prognosis? @ -No Drug Therapy requiring intensive monitoring for toxicity (Heparin, Nitro, Insulin, Cardizem)? @ -No Were any procedures done? @ -No Diagnosis/symptom? @ Dizziness Acute, or Chronic, or Acute on Chronic? @Acute Uncomplicated (without systemic symptoms) or Complicated (systemic symptoms)? @Complicated Side effects of treatment? @ -No Exacerbation, Progression, or Severe Exacerbation? @ -No Poses a threat to life or bodily function? How? (Chest pain, USA, SD, pneumonia, PE, COPD, DKA, ARF, appy, cholecystitis, CVA, Diverticulitis, Homicidal, Suicidal, threat to staff... and all critical care pts) @ -Yes - Lab Data Result diagrams: 04/13/24 03:35 04/13/24 02:05 Lab Results 04/13/24 04/13/24 04/13/24 Range/Units 02:05 02:05 03:35 WBC 15.1 H (3.8-10.6) k/uL RBC 4.26 L (4.30-5.90) m/uL Hgb 13.3 (13.0-17.5) gm/dL Hct 39.3 (39.0-53.0) % MCV 92.2 (80.0-100.0) fL MCH 31.3 (25.0-35.0) pg MCHC 34.0 (31.0-37.0) g/dL RDW 13.3 (11.5-15.5) % Plt Count 144 L (150-450) k/uL MPV 10.6 Neutrophils % 85 % Lymphocytes % 10 % Monocytes % 5 % Eosinophils % 0 % Basophils % 0 % Neutrophils # 12.7 H (1.3-7.7) k/uL Lymphocytes # 1.5 (1.0-4.8) k/uL Monocytes # 0.7 (0-1.0) k/uL Eosinophils # 0.0 (0-0.7) k/uL Basophils # 0.0 (0-0.2) k/uL Sodium 138 (137-145) mmol/L Potassium 3.9 (3.5-5.1) mmol/L Chloride 106 (98-107) mmol/L Carbon Dioxide 23 (22-30) mmol/L Anion Gap 9 mmol/L BUN 11 (9-20) mg/dL Creatinine 0.94 (0.66-1.25) mg/dL Est GFR (CKD-EPI)AfAm >90 (>60 ml/min/1.73 sqM) Est GFR (CKD-EPI)NonAf 89 (>60 ml/min/1.73 sqM) Glucose 152 H (74-99) mg/dL Calcium 9.6 (8.4-10.2) mg/dL Magnesium 1.9 (1.6-2.3) mg/dL Total Bilirubin 1.0 (0.2-1.3) mg/dL AST 24 (17-59) U/L ALT 18 (4-49) U/L Alkaline Phosphatase 63 (38-126) U/L Troponin I <0.012 (0.000-0.034) ng/mL NT-Pro-B Natriuret Pep 104 pg/mL Total Protein 6.8 (6.3-8.2) g/dL Albumin 4.4 (3.5-5.0) g/dL Disposition Clinical Impression: Chest pain, Dizziness Disposition: ADMITTED IP TO THIS HOSP Condition: Stable
[2024-04-13] MEDS: ACETAMINOPHEN TAB 500 MG TAB PO STA (02:14)
[2024-04-13] MEDS: SODIUM CHLORIDE 0.9% 1,000 ML IV STA (02:17)
[2024-04-13 03:06] LABS: ALT 18 U/L (4-49); AST 24 U/L (17-59); African American GFR (CKD) >90 (>60 ml/min/1.73 sqM); Albumin 4.4 g/dL (3.5-5.0); Alkaline Phosphatase 63 U/L (38-126); Anion Gap 9 mmol/L; Blood Urea Nitrogen 11 mg/dL (9-20); Calcium 9.6 mg/dL (8.4-10.2); Carbon Dioxide 23 mmol/L (22-30); Chloride 106 mmol/L (98-107); Glucose 152 mg/dL (74-99); Magnesium 1.9 mg/dL (1.6-2.3); Non-African American GFR(CKD) 89 (>60 ml/min/1.73 sqM); Sodium 138 mmol/L (137-145); Total Protein 6.8 g/dL (6.3-8.2)
[2024-04-13 03:13] LABS: NT-Pro-B-Type Natriuretic Pept 104 pg/mL
[2024-04-13 03:29] LABS: Potassium 3.9 mmol/L (3.5-5.1)
[2024-04-13] MEDS ORDERED: NITROGLYCERIN SL TABS 0.4 MG TAB SUBLINGUAL PRN ×2 (04:28→06:19)
[2024-04-13 04:46] LABS: Basophils % (A) 0 %; Eosinophils % (A) 0 %; HCT 39.3 % (39.0-53.0); HGB 13.3 gm/dL (13.0-17.5); Lymphocytes # (A) 1.5 k/uL (1.0-4.8); Lymphocytes % (A) 10 %; MCH 31.3 pg (25.0-35.0); MCV 92.2 fL (80.0-100.0); Mean Platelet Volume 10.6; Monocytes # (A) 0.7 k/uL (0-1.0); Monocytes % (A) 5 %; Neutrophils # (A) 12.7 k/uL (1.3-7.7); Neutrophils % (A) 85 %; Platelet Count 144 k/uL (150-450); RBC 4.26 m/uL (4.30-5.90); RDW 13.3 % (11.5-15.5); WBC 15.1 k/uL (3.8-10.6)
[2024-04-13] MEDS: ALPRAZolam 0.25 MG TAB PO STA (04:56)
[2024-04-13 05:00] LABS: INR 1.1 (<1.2); Prothrombin Time 11.9 sec (10.0-12.5)
--- NOTE | 2024-04-13 05:13 | XR ---
EXAM: XR Chest, 2 Views CLINICAL HISTORY: ITS.REASON XR Reason: Chest Pain TECHNIQUE: Frontal and lateral views of the chest. COMPARISON: 2 views of the chest november IMPRESSION: No acute cardiopulmonary abnormality.
[2024-04-13 05:44] LABS: Partial Thromboplastin Time 19.3 sec (22.0-30.0)
--- NOTE | 2024-04-13 05:47 | P.HPIM ---
History of Present Illness H&P Date: 04/13/24 Chief Complaint: Chest pain Patient is a 58-year-old male with past medical history of MN with stent placement presents to the ED with chest pain. The patient mentions his pain started yesterday which was located on the left side of his chest, was 1-2 out of 10 in severity, is not radiating. He mentions watching a football game when his pain started. He also complains of having nausea, diaphoresis, tingling in his fingers and feeling dizzy as well as short of breath. He took a nitroglycerin which resolved his symptoms. He came to the ED because of his history of CAD with stent placement. Denies fever, chills, vomiting, abdominal pain, diarrhea, coughing, dysuria, blood in urine/stool. ED workup revealed chest x-ray that shows no acute cardiopulmonary abnormality and troponin x2 <0.012. In the ED he was treated with acetaminophen, alprazolam and 0.9 normal saline. Vitals: T 98.3 F, P 68 bpm, RR 18, BP 133/72, O2 sat 99% on room air EKG: Sinus rhythm, rate of 66 bpm, QTc 388 ms ED documentation reviewed. Review of systems: Pertinent positives and negatives as discussed in HPI, a complete review of systems was performed and all other systems are negative. PMH: CAD, MN, syncope, hyperlipidemia, arthritis PSH: Cardiac cath with stent, hernia repair Allergies: Opiates Social history: Tobacco: Former smoker, quit more than 10 years ago Alcohol: Quit 20 years ago Recreational drugs: Marijuana Physical examination: Vital signs reviewed General: non toxic, no distress, appears at stated age, overweight Derm: no unusual rashes/lesions, warm Head: atraumatic, normocephalic, symmetric Eyes: EOMI, anicteric sclera ENT: Nose and ears atraumatic Mouth: no lip lesion, mucus membranes moist Cardiovascular: S1S2 reg, no murmur, no peripheral edema Lungs: CTA bilateral, no rhonchi, no rales, no accessory muscle use Abdominal: soft, nontender to palpation, no guarding Ext: muscle strength 5 out of 5 in all 4 extremities grossly, no gross muscle at rophy, no contractures, Neuro: CN II-XI grossly intact, no gross focal neuro deficits Psych: Alert, oriented, appropriate affect Assessment/Plan: Patient is a 58-year-old male with past medical history of CAD with stent placement presenting to the ED with chest pain. Case was discussed with the ED provider and admission was accepted for cardiac workup. #. Atypical chest pain, r/o ACS Troponin x 2 <0.012, NT proBNP 104 Chest x-ray does not show any acute cardiopulmonary abnormality EKG: Sinus rhythm rate of 66 bpm Lipid panel ordered Obtain A1c Cardiology and cardiac rehab consulted Telemetry monitoring Nitroglycerin 0.4 mg sublingual Q5M as needed continue aspirin and statin xanax 0.5 po tid prn for anxiety #. History of CAD with stent placement Continue aspirin 81 mg p.o. daily, prasugrel 10 mg p.o. daily #. Hyperlipidemia Continue atorvastatin 80 mg p.o. at bedtime, #. leukocytosis WBC 15.1 Urinalysis ordered Monitor CBC #. Hyperglycemia, no H/o DM Obtain A1c Monitor BMP F: None E: Replete as required N: Heart healthy diet A: Ambulatory DVT prophylaxis: Lovenox 40 mg SQ daily The patient is admitted with an anticipated less than 2 midnight stay for evaluation of chest pain CODE STATUS: Full code Discussed with: Patient Anticipated discharge place: Home Past Medical History Past Medical History: Coronary Artery Disease (CAD), Hyperlipidemia, Hypertension, Myocardial Infarction (MN) Additional Past Medical History / Comment(s): DJD, Osteoarthritis, chronic abdominal pain Last Myocardial Infarction Date:: 02/2012 History of Any Multi-Drug Resistant Organisms: None Reported Past Surgical History: Heart Catheterization With Stent, Hernia Repair Additional Past Surgical History / Comment(s): sciatica Past Anesthesia/Blood Transfusion Reactions: Previous Problems w/ Anesthesia Additional Past Anesthesia/Blood Transfusion Reaction / Comment(s): syncopal epsisode after getting local anesthesia for stitches Date of Last Stent Placement:: 02/2012 Past Psychological History: No Psychological Hx Reported Smoking Status: Former smoker Past Alcohol Use History: None Reported Past Drug Use History: Marijuana - Past Family History Father Additional Family Medical History / Comment(s): no heart disease Mother Additional Family Medical History / Comment(s): no hx of MN Medications and Allergies Home Medications Medication Instructions Recorded Confirmed Type Cetirizine HCl [Zyrtec] 10 mg PO DAILY 08/28/21 11/11/21 History Aspirin 81 mg PO DAILY #90 tab 08/30/21 11/11/21 Rx Atorvastatin [Lipitor] 80 mg PO HS #90 tab 08/30/21 11/11/21 Rx Multivitamins, Thera [Multivitamin 1 tab PO HS 11/11/21 11/11/21 History (formulary)] Nitroglycerin Sl Tabs [Nitrostat] 0.4 mg SL Q5M PRN 11/11/21 11/11/21 History [place]-3 Fatty Acids/Fish Oil [Fish 1 cap PO HS 11/11/21 11/11/21 History Oil 1,000 mg Softgel] Prasugrel [Effient] 10 mg PO DAILY 11/11/21 11/11/21 History Allergies Allergy/AdvReac Type Severity Reaction Status Date / Time ciprofloxacin [From Cipro] AdvReac Hallucinati Verified 11/11/21 19:34 ons codeine AdvReac syncopal Verified 11/11/21 19:33 [From Tylenol-Codeine #3] episode morphine AdvReac syncopal Verified 11/11/21 19:33 episode Opioids - Morphine Analogues AdvReac syncopal Verified 11/11/21 19:33 episode Opioids-Meperidine and AdvReac syncopal Verified 11/11/21 19:33 Related episode Opioids-Methadone and Related AdvReac syncopal Verified 11/11/21 19:33 episode Physical Exam Vitals: Vital Signs Temp Pulse Resp BP Pulse Ox 04/13/24 03:00 67 16 108/67 97 04/13/24 01:45 98.3 F 68 18 133/72 99 Intake and Output 04/12/24 04/12/24 04/13/24 14:59 22:59 06:59 Other: Weight 76.204 kg Results CBC & Chem 7: 04/13/24 03:35 04/13/24 02:05 Labs: Abnormal Lab Results - Last 24 Hours (Table) 04/13/24 04/13/24 Range/Units 02:05 03:35 WBC 15.1 H (3.8-10.6) k/uL RBC 4.26 L (4.30-5.90) m/uL Plt Count 144 L (150-450) k/uL Neutrophils # 12.7 H (1.3-7.7) k/uL Glucose 152 H (74-99) mg/dL Assessment and Plan Assessment: I have seen and evaluated the patient today. I Discussed the case with the resident and agree with the resident's findings I edited the assessment and plan as necessary as documented in the resident's note.
[2024-04-13 05:56] LABS: Appearance,Urine Clear (Clear); Bilirubin,Urine Negative (Negative); Blood,Urine Negative (Negative); Color,Urine Colorless; Glucose,Urine (UA) Trace (Negative); Ketones,Urine Negative (Negative); Leukocyte Esterase,Urine Negative (Negative); Nitrite,Urine Negative (Negative); PH, Urine 6.5 (5.0-8.0); Protein,Urine Negative (Negative); Specific Gravity,Urine 1.007 (1.001-1.035); Urobilinogen,Urine <2.0 mg/dL (<2.0)
[2024-04-13] MEDS ORDERED: ALPRAZolam 0.5 MG TAB PO PRN (06:21)
[2024-04-13 08:35] VITALS: TEMP 98.2
[2024-04-13] MEDS: ENOXAPARIN 40 MG/0.4 ML SYRINGE SQ SCH (08:37)
[2024-04-13] MEDS: METOPROLOL TARTRATE 12.5 MG TAB PO SCH (08:38)
[2024-04-13] MEDS: ATORVASTATIN 80 MG TAB PO SCH (08:38)
[2024-04-13] MEDS: ISOSORBIDE MONONITRATE ER 30 MG TAB.ER.24H PO SCH (08:38)
[2024-04-13] MEDS: ASPIRIN 81 MG PO SCH (08:38)
[2024-04-13] MEDS ORDERED: ASPIRIN 81 MG PO SCH (09:00)
[2024-04-13] MEDS ORDERED: PRASUGREL 10 MG TAB PO SCH (09:00)
--- NOTE | 2024-04-13 10:03 | P.PN ---
Subjective Progress Note Date: 04/13/24 Hospital course: Patient is a pleasant 58-year-old male with a past medical history of CAD status post stenting, hypertension, hyperlipidemia, and osteoarthritis with degenerative disc disease. He presented to the emergency department with a chief complaint of chest pain. On arrival to our facility, patient underwent evaluation in the emergency department. Vital signs upon arrival show blood pressure 133/72, heart rate 68, respiratory rate 18, temp 98.3 F, and SpO2 of 99% on room air. EKG was completed showing normal sinus rhythm at 66 bpm with no significant T wave or ST abnormality showing no signs of acute ischemia upon personal review and interpretation. Chest x-ray completed negative for acute cardiopulmonary process. Labs completed and reviewed. CBC showing leukocytosis with WBC count of 15.1. Coagulation profile showing low PTT of 19.3 otherwise normal findings. BMP unremarkable. Blood glucose 152. Magnesium 1.9. Liver profile unremarkable. Troponin was negative at less than 0.012. Patient admitted under our services with consultation to cardiology. Troponins trended and negative at less than 0.012 x 2 draws. Echocardiogram completed showing a preserved EF of 50 to 55% with no significant valvular or structural abnormalities reported. Physical exam: Patient seen and fully evaluated at bedside this morning. He reported experiencing some acid reflux, but currently denies having any chest pain/pressure or palpitations. He denies any other complaints including shortness of breath, cough or congestion, nausea, vomiting, or experiencing any numbness/tingling/weakness/swelling in his extremities. Vital signs reviewed and stable. General: Nontoxic, no distress and appears stated age. Derm: Skin warm and dry, normal coloration for ethnicity. Head: Atraumatic, normocephalic and symmetric. Eyes: EOM's intact, no lid lag, and anicteric sclera Mouth: no lip lesions, mucus membranes moist Cardiovascular: regular rate and rhythm with normal S1S2, no murmur, positive posterior tibial pulses bilaterally, and cap refill < 2 seconds. Lungs: Respirations even, regular, and unlabored on room air. Lungs CTA bilaterally, no rhonchi, no rales, no wheezing, and no accessory muscle usage. Abdominal: soft, nontender to palpation, no guarding, no appreciable organomegaly Ext: ROM intact. No gross muscle atrophy, no edema, no contractures Neuro: Speech clear, face symmetrical and CN II-XII grossly intact with no noted focal neuro deficits Psych: Alert and oriented to person, place, time, and situation. Appropriate and pleasant affect. Assessment and Plan of Care: Chest pain, rule out acute coronary event CAD status post stenting Hypertension Hyperlipidemia -Cardiology consulted, appreciate recommendations -Telemetry monitoring -Troponins negative x 2 will repeat third troponin. -Cardiac diet, NPO at midnight -Aspirin 81 mg daily, atorvastatin, -Lipid profile with a.m. labs. -Echocardiogram completed showing a preserved EF of 50 to 55% with no significant valvular or structural abnormalities reported. GERD Patient given GI cocktail consisting of Maalox, lidocaine, and hyoscyamine. Data and imaging reviewed: -Troponins trended and negative at less than 0.012 x 2 draws. -Echocardiogram completed showing a preserved EF of 50 to 55% with no significant valvular or structural abnormalities reported. CODE STATUS: Full code DVT prophylaxis: Lovenox Anticipated discharge date: Pending clinical course Anticipated discharge place: Home Patient was seen independently by Nurse Pracitioner. This document was prepared using [employer] dictation software. Please allow for errors in stitcher hand, while rare they do occur. Mehran Rasmussen NP rendered care for this patient independently, reviewed the findi ngs and plan as documented in the note above. I did not physically speak with or examine the patient on this date. Objective - Vital Signs Vital signs: Vital Signs Temp 98.2 F 04/13/24 08:33 Pulse 61 04/13/24 08:33 Resp 18 04/13/24 08:33 BP 128/84 04/13/24 08:33 Pulse Ox 96 04/13/24 08:33 FiO2 Intake & Output 04/12/24 04/13/24 04/13/24 18:59 06:59 18:59 Weight 76.204 kg - Labs CBC & Chem 7: 04/13/24 03:35 04/13/24 02:05 Labs: Abnormal Lab Results - Last 24 Hours (Table) 04/13/24 04/13/24 04/13/24 Range/Units 02:05 03:35 04:40 WBC 15.1 H (3.8-10.6) k/uL RBC 4.26 L (4.30-5.90) m/uL Plt Count 144 L (150-450) k/uL Neutrophils # 12.7 H (1.3-7.7) k/uL APTT 19.3 L (22.0-30.0) sec Glucose 152 H (74-99) mg/dL Urine Glucose (UA) (Negative) 04/13/24 Range/Units 05:00 WBC (3.8-10.6) k/uL RBC (4.30-5.90) m/uL Plt Count (150-450) k/uL Neutrophils # (1.3-7.7) k/uL APTT (22.0-30.0) sec Glucose (74-99) mg/dL Urine Glucose (UA) Trace H (Negative)
--- NOTE | 2024-04-13 10:32 | CA ---
Transthoracic Echo Report Name: Horace Joe Age: 58 Gender: M : 1965 Exam Date: 04/13/2024 08:32 Exam Location: [facility] Ht (in): 66 Wt (lb): 168 Ordering Physician: Melvina Ascencio Attending/Referring Phys: [id number], Silva Dredge Pipeman Christelle Duarte RDCS Procedure CPT: Indications: LVF Cardiac Hx: Technical Quality: Fair Contrast 1: Total Dose (mL): Contrast 2: Total Dose (mL): MEASUREMENTS (Male / Female) Normal Values 2D ECHO LV Diastolic Diameter PLAX 5.0 cm 4.2 - 5.9 / 3.9 - 5.3 cm LV Systolic Diameter PLAX 3.7 cm IVS Diastolic Thickness 1.0 cm 0.6 - 1.0 / 0.6 - 0.9 cm LVPW Diastolic Thickness 1.1 cm 0.6 - 1.0 / 0.6 - 0.9 cm LV Relative Wall Thickness 0.4 RV Internal Dim ED PLAX 2.2 cm LA Systolic Diameter LX 3.8 cm 3.0 - 4.0 / 2.7 - 3.8 cm LV Diastolic Volume MOD BP 78.0 cm??? 67 - 155 / 56 - 104 cm??? LV Systolic Volume MOD BP 37.3 cm??? - 58 / 19 - 49 cm??? LV Ejection Fraction MOD BP 52.2 % >= 55 % LV Cardiac Index MOD BP 1306.8 cm???/min???m??? LV Diastolic Volume MOD 4C 80.0 cm??? LV Systolic Volume MOD 4C 40.3 cm??? LV Ejection Fraction MOD 4C 49.6 % LV Cardiac Index MOD 4C 1273.7 cm???/min???m??? LV Diastolic Length 4C 7.4 cm LV Systolic Length 4C 6.1 cm LV Diastolic Volume MOD 2C 76.1 cm??? LV Systolic Volume MOD 2C 31.6 cm??? LV Ejection Fraction MOD 2C 58.5 % LV Cardiac Index MOD 2C 1428.9 cm???/min???m??? LV Diastolic Length 2C 7.5 cm LV Systolic Length 2C 6.7 cm LA Volume 48.1 cm??? 18 - 58 / 22 - 52 cm??? LA Volume Index 25.3 cm???/m??? 16 - 28 cm???/m??? M-MODE Aortic Root Diameter MM 2.8 cm LA Systolic Diameter MM 3.3 cm LA Ao Ratio MM 1.2 AV Cusp Separation MM 1.9 cm DOPPLER MV Area PHT 2.2 cm??? Mitral E Point Velocity 88.1 cm/s Mitral A Point Velocity 77.0 cm/s Mitral E to A Ratio 1.1 MV Deceleration Time 343.8 ms TR Peak Velocity 253.4 cm/s TR Peak Gradient 25.7 mmHg Right Ventricular Systolic Press 29.7 mmHg FINDINGS Left Ventricle Left ventricular ejection fraction is estimated at 50-55 %. Mildly decreased left ventricular ejection fraction. No obvious regional wall motion abnormalities. Left ventricular cavity size normal. Right Ventricle Normal right ventricular size and function. Right ventricular systolic pressure within normal limits. Right Atrium Mild right atrial dilatation. Left Atrium Mild left atrial dilatation. Mitral Valve Structurally normal mitral valve. Mild mitral regurgitation. Aortic Valve Trileaflet aortic valve. No aortic valve stenosis or regurgitation. Tricuspid Valve Structurally normal tricuspid valve. Mild tricuspid regurgitation. No tricuspid stenosis. Pulmonic Valve Structurally normal pulmonic valve. Trace pulmonic regurgitation. No pulmonic stenosis. Pericardium No pericardial or pleural effusion. Aorta Normal size aortic root and proximal ascending aorta. CONCLUSIONS Left ventricular systolic function is normal Previewed by: Dr. Gopi Julien MD (Electronically Signed) Final Date: 13 April 2024 10:32
[2024-04-13] MEDS: ACETAMINOPHEN TAB 325 MG TAB PO PRN (10:36)
[2024-04-13] MEDS: MAG HYDROX/AL HYDROX/SIMETH 30 ML, HYOSCYAMINE ELIXIR 10 ML, LIDOCAINE VISCOUS 2% 10 ML PO ONE (10:36)
--- NOTE | 2024-04-13 10:42 | P.CRDCN ---
History of Present Illness Consult date: 04/13/24 Consult reason: chest pain History of present illness: This is a 58-year-old male patient of Dr. Urbina with past medical history of coronary artery disease with prior stenting of the RCA, known severe disease involving the LAD and circumflex as well, hypertension, dyslipidemia, ischemic cardiomyopathy, tobacco use. We have been asked to evaluate the patient for chest pain. Patient states that he developed chest pain that felt similar to that when he had a heart attack in the past. He had EMS come to the home and checked him and he was also told by them that he needs to come into the hospital. The chest pain has subsequently resolved and he states he wants to go home today. He states he has a severely disabled at home and she cannot be left for long periods. Patient did eat a breakfast this morning. He states he would rather go home and follow-up later for testing. Recommend patient's are for cardiac catheterization but due to his circumstances, medical management will be pursued. Patient last saw Dr. Urbina in June 2023 and at that time he had had an abnormal myocardial perfusion imaging stress test and due to that was recommended to undergo cardiac catheterization. Patient states he that he has not followed up because he has had insurance issues. Blood pressure 128/84, heart rate 61, pulse ox 96% on room air. EKG: Sinus rhythm with nonspecific ST-T wave changes Chest x-ray: No acute process Echocardiogram reveals EF of 50 to 55%. Laboratory studies: WBC 15.1, hemoglobin 13.3. Troponin negative x 2. Glucose 152. Creatinine 0.94, sodium 138 potassium 3.9. Home cardiac medications: Atorvastatin 80 mg daily Review Of Systems: At the time of my exam: CONSTITUTIONAL: Denies fever or chills. HEENT: Denies blurred vision, vision changes, or eye pain. Denies hemoptysis CARDIOVASCULAR: Denies chest pain. Denies orthopnea. Denies PND. Denies palpitations RESPIRATORY: Denies shortness of breath. GASTROINTESTINAL: Denies abdominal pain. Denies nausea or vomiting. HEMATOLOGIC: Denies bleeding disorders. GENITOURINARY: Denies any blood in urine. SKIN: Denies puritis. Denies rash. Physical examination: Gen: This is a 58-year-old male in no acute distress VS: reviewed HEENT: Head is atraumatic, normocephalic. Pupils equal, round. Sclerae is anicteric. NECK: Supple. No JVD. LUNGS: Clear to auscultation. No wheezes or rhonchi. No intercostal retractions. HEART: Regular rate and rhythm. No murmur. ABDOMEN: Soft No tenderness. EXTREMITIES: No pedal edema. No calf tenderness. NEUROLOGICAL: Patient is awake, alert and oriented x3. Assessment: Atypical chest pain, acute coronary syndrome ruled out Possible unstable angina with known coronary artery disease and previously abnormal stress test Patient declined cardiac catheterization Coronary artery disease with prior stenting of the RCA with known disease in the LAD and circumflex Hypertension Dyslipidemia Ischemic cardiomyopathy, resolved Tobacco use Plan: Resume patient's home cardiac medications Add aspirin 81 mg daily, Imdur 30 mg daily and Lopressor 12.5 mg twice daily Patient is cleared from cardiology for discharge as patient declines treatment and is requesting to go home to help his . Patient may follow-up in the office with Dr. Urbina in 2 weeks. Thank you kindly for this consultation. Nurse practitioner note has been reviewed, I agree with documented findings and plan of care. Patient was seen and examined. Past Medical History Past Medical History: Coronary Artery Disease (CAD), Hyperlipidemia, Hypertension, Myocardial Infarction (CT) Additional Past Medical History / Comment(s): DJD, Osteoarthritis, chronic abdominal pain Last Myocardial Infarction Date:: 02/2012 History of Any Multi-Drug Resistant Organisms: None Reported Past Surgical History: Heart Catheterization With Stent, Hernia Repair Additional Past Surgical History / Comment(s): sciatica Past Anesthesia/Blood Transfusion Reactions: Previous Problems w/ Anesthesia Additional Past Anesthesia/Blood Transfusion Reaction / Comment(s): syncopal epsisode after getting local anesthesia for stitches Date of Last Stent Placement:: 02/2012 Past Psychological History: No Psychological Hx Reported Smoking Status: Former smoker Past Alcohol Use History: None Reported Past Drug Use History: Marijuana - Past Family History Father Additional Family Medical History / Comment(s): no heart disease Mother Additional Family Medical History / Comment(s): no hx of CT Medications and Allergies Home Medications Medication Instructions Recorded Confirmed Type Atorvastatin Calcium [Lipitor] 80 mg PO DAILY@0430 04/13/24 04/13/24 History Allergies Allergy/AdvReac Type Severity Reaction Status Date / Time ciprofloxacin [From Cipro] AdvReac Hallucinati Verified 04/13/24 07:24 ons codeine AdvReac syncopal Verified 04/13/24 07:24 [From Tylenol-Codeine #3] episode morphine AdvReac syncopal Verified 04/13/24 07:24 episode Opioids - Morphine Analogues AdvReac syncopal Verified 04/13/24 07:24 episode Opioids-Meperidine and AdvReac syncopal Verified 04/13/24 07:24 Related episode Opioids-Methadone and Related AdvReac syncopal Verified 04/13/24 07:24 episode Physical Exam Vitals: Vital Signs Temp Pulse Resp BP Pulse Ox 04/13/24 06:00 66 16 104/65 96 04/13/24 05:00 72 16 139/88 96 04/13/24 03:00 67 16 108/67 97 04/13/24 01:45 98.3 F 68 18 133/72 99 Intake and Output 04/12/24 04/13/24 04/13/24 22:59 06:59 14:59 Other: Weight 76.204 kg Results 04/13/24 03:35 04/13/24 02:05 Cardiac Enzymes 04/13/24 04/13/24 04/13/24 Range/Units 02:05 02:05 04:40 AST 24 (17-59) U/L Troponin I <0.012 <0.012 (0.000-0.034) ng/mL Coagulation 04/13/24 Range/Units 04:40 PT 11.9 (10.0-12.5) sec APTT 19.3 L (22.0-30.0) sec CBC 04/13/24 Range/Units 03:35 WBC 15.1 H (3.8-10.6) k/uL RBC 4.26 L (4.30-5.90) m/uL Hgb 13.3 (13.0-17.5) gm/dL Hct 39.3 (39.0-53.0) % Plt Count 144 L (150-450) k/uL Comprehensive Metabolic Panel 04/13/24 Range/Units 02:05 Sodium 138 (137-145) mmol/L Potassium 3.9 (3.5-5.1) mmol/L Chloride 106 (98-107) mmol/L Carbon Dioxide 23 (22-30) mmol/L BUN 11 (9-20) mg/dL Creatinine 0.94 (0.66-1.25) mg/dL Glucose 152 H (74-99) mg/dL Calcium 9.6 (8.4-10.2) mg/dL AST 24 (17-59) U/L ALT 18 (4-49) U/L Alkaline Phosphatase 63 (38-126) U/L Total Protein 6.8 (6.3-8.2) g/dL Albumin 4.4 (3.5-5.0) g/dL Current Medications Generic Name Dose Route Start Last Admin Trade Name Freq PRN Reason Stop Dose Admin Alprazolam 0.5 mg 04/13/24 06:21 Alprazolam 0.5 Mg Tab PO TID PRN Anxiety Atorvastatin Calcium 80 mg 04/14/24 04:30 Atorvastatin 80 Mg Tab PO DAILY@0430 NIKIA Enoxaparin Sodium 40 mg 04/13/24 09:00 Enoxaparin 40 Mg/0.4 Ml Syringe SQ DAILY NIKIA Intake and Output 04/12/24 04/13/24 04/13/24 22:59 06:59 14:59 Other: Weight 76.204 kg 04/13/24 03:35 04/13/24 02:05
--- NOTE | 2024-04-13 11:58 | P.DS ---
Providers Date of admission: 04/13/24 04:28 Expected date of discharge: 04/13/24 Attending physician: Umesh Workman MD Consults: 04/13/24 04:28 Consult Physician Urgent Consulting Provider: Brice Amaya Consult Reason/Comments: Concern for ACS Do you want consulting provider notified?: Yes, Notify in am Primary care physician: Stated None Hospital Course: Discharge Diagnosis: Chest pain, likely unstable angina with known coronary artery disease and previously abnormal stress test but patient declining cardiac catheterization. Patient to continue atorvastatin 80 mg daily and was provided with a prescription for aspirin 81 mg daily, isosorbide mononitrate 30 mg daily, and metoprolol 12.5 mg twice daily. CAD status post stenting Hypertension Hyperlipidemia GERD Hospital Course: Patient is a pleasant 58-year-old male with a past medical history of CAD status post stenting, hypertension, hyperlipidemia, and osteoarthritis with degenerative disc disease. He presented to the emergency department with a chief complaint of chest pain. On arrival to our facility, patient underwent evaluation in the emergency department. Vital signs upon arrival show blood pressure 133/72, heart rate 68, respiratory rate 18, temp 98.3 F, and SpO2 of 99% on room air. EKG was completed showing normal sinus rhythm at 66 bpm with no significant T wave or ST abnormality showing no signs of acute ischemia upon personal review and interpretation. Chest x-ray completed negative for acute cardiopulmonary process. Labs completed and reviewed. CBC showing leukocytosis with WBC count of 15.1. Coagulation profile showing low PTT of 19.3 otherwise normal findings. BMP unremarkable. Blood glucose 152. Magnesium 1.9. Liver profile unremarkable. Troponin was negative at less than 0.012. Patient admitted under our services with consultation to cardiology. Troponins trended and negative at less than 0.012 x 3 draws. Echocardiogram completed showing a preserved EF of 50 to 55% with no significant valvular or structural abnormalities reported. Patient was evaluated by cardiology, recommending patient undergo cardiac catheterization secondary to previously abnormal stress test. Patient declined cardiac cath at this time requesting discharge. Cardiology clearing patient from cardiac perspective and recommending patient follow-up in their office in 2 weeks. Patient remains free from any further reports of chest pain/discomfort and medically stable for discharge at this time. Strongly encourage patient to follow-up as instructed with PCP and cardiology. Patient provided for prescription of aspirin, Imdur, and Lopressor at discharge. Physical exam: Vital signs reviewed and stable. General: Nontoxic, no distress and appears stated age. Derm: Skin warm and dry, normal coloration for ethnicity. Head: Atraumatic, normocephalic and symmetric. Eyes: EOM's intact, no lid lag, and anicteric sclera Mouth: no lip lesions, mucus membranes moist Cardiovascular: regular rate and rhythm with normal S1S2, no murmur, positive posterior tibial pulses bilaterally, and cap refill < 2 seconds. Lungs: Respirations even, regular, and unlabored on room air. Lungs CTA bilaterally, no rhonchi, no rales, no wheezing, and no accessory muscle usage. Abdominal: soft, nontender to palpation, no guarding, no appreciable organomegaly Ext: ROM intact. No gross muscle atrophy, no edema, no contractures Neuro: Speech clear, face symmetrical and CN II-XII grossly intact with no noted focal neuro deficits Psych: Alert and oriented to person, place, time, and situation. Appropriate and pleasant affect. A total of 35 minutes of time were spent preparing this complex discharge summary. Pt was discharged on 04/13/2024 at 11:56 AM. Patient was seen independently by Nurse Practitioner. This document was prepared using [employer] dictation software. Please allow for errors in oil bay technician while rare they do occur. Mehran Rasmussen NP rendered care for this patient independently, reviewed the findings and plan as documented in the note above. I did not physically speak with or examine the patient on this date. Patient Condition at Discharge: Stable Plan - Discharge Summary New Discharge Prescriptions: New Aspirin 81 mg PO DAILY 30 Days #30 tab Isosorbide Mononitrate ER [Imdur] 30 mg PO DAILY 30 Days #30 tab Metoprolol Tartrate [Lopressor] 12.5 mg PO BID 30 Days #60 tab Continue Atorvastatin Calcium [Lipitor] 80 mg PO DAILY@0430 Discharge Medication List Aspirin 81 mg PO DAILY 30 Days #30 tab 04/13/24 [Rx] Atorvastatin Calcium [Lipitor] 80 mg PO DAILY@0430 04/13/24 [History] Isosorbide Mononitrate ER [Imdur] 30 mg PO DAILY 30 Days #30 tab 04/13/24 [Rx] Metoprolol Tartrate [Lopressor] 12.5 mg PO BID 30 Days #60 tab 10/01/24 [Rx] Follow up Appointment(s)/Referral(s): Blayne Nielson MD [REFERRING] - 04/15/24 8:00 am (This is a new patient appointment. Please bring ID and insurance cards. You will have paper work to complete. ) Gopi Julien MD [STAFF PHYSICIAN] - 1 Week Patient Instructions/Handouts: Chest Pain (DC), Dizziness (ED) Activity/Diet/Wound Care/Special Instructions: Activity: As tolerated. Take breaks as needed. Diet: Heart healthy and carb consistent diet. Avoid salts, or foods with hidden salts such as canned or boxed foods and frozen dinners. Extra salt makes your heart work harder and traps the fluid in your body for longer. Special Instructions: Take all of your medications as directed and remember to keep all of your doctor's appointments and follow-up as needed. Thank you for allowing us to participate in your care, it was truly a pleasure having you for our patient!!! . Discharge Disposition: HOME SELF-CARE
[2024-04-13 12:57] VITALS: BP 116/83; PULSE 60; RESP 18
[2024-04-14] MEDS ORDERED: ATORVASTATIN 80 MG TAB PO SCH (04:30)
== END 2024-04-13 12:57 | disposition home or self-care (01) ==
LOC: EC 01:44 → 6NMEDSUR 04:28
PROVIDERS: ADMIT Internal Medicine; ATTEND Internal Medicine
DX: R07.89 Other chest pain (principal); I25.10 Atherosclerotic heart disease of native coronary artery without angina pectoris; E78.5 Hyperlipidemia, unspecified; I25.5 Ischemic cardiomyopathy; I10 Essential (primary) hypertension; M19.90 Unspecified osteoarthritis, unspecified site; K21.9 Gastro-esophageal reflux disease without esophagitis; R94.39 Abnormal result of other cardiovascular function study; R42 Dizziness and giddiness; R61 Generalized hyperhidrosis; R20.2 Paresthesia of skin; D72.829 Elevated white blood cell count, unspecified; R73.9 Hyperglycemia, unspecified; Z79.02 Long term (current) use of antithrombotics/antiplatelets; Z79.82 Long term (current) use of aspirin; Z79.899 Other long term (current) drug therapy; Z88.5 Allergy status to narcotic agent; Z88.1 Allergy status to other antibiotic agents; Z87.891 Personal history of nicotine dependence; Z95.5 Presence of coronary angioplasty implant and graft
CPT/HCPCS: 96360; 99285; 36415; 93005; 93306; 83880; 80053; 83735; 84484; 85025; 85610; 85730; 81003; 83036; 71046; G0378